=== PATIENT | male | born 1950 | race Caucasian/White ===

== ENCOUNTER 2016-05-11 11:54 | Outpatient (CLI) | payer BC ==
[~2016-05-11] VITALS: Ht 177.8 cm; Wt 113.4 kg
[~2016-05-11 11:54] MED LIST: AMLO5TAB2 PO; ASP325T PO; ASP81TEC PO; ATR20T PO; CALC600T12 PO; CARI350T27 PO; CLOP75TA; CRS350T PO; Calcium PO; FURO40TA4 PO; IBUP-30 PO; LIPITOR; LORA0.5T PO; METO-270 PO; MTP25TSR PO; OMEG-9 PO; OMEP-10 PO; OMEP20CA12 PO; OXYC-191 PO; PARO20TA5 PO; POTA8TAB6 PO; PREG50CA2 PO; PRX10T PO; RAMI10CA PO; RMP5C PO; ROSU5TAB; SLOW K PO
[2016-05-11] MEDS ORDERED: TRIAMCINOLONE ACET (KENALOG-40) 40 MG/ML 1 ML VIAL ONE (12:04)
[2016-05-11] MEDS ORDERED: LIDOCAINE 1% INJ 20 ML (XYLOCAINE) VIAL ONE (12:04)
[2016-05-11] MEDS ORDERED: BUPIVACAINE 0.25% 30 ML (SENSORCAINE) VIAL ONE (12:04)
[2016-05-11 12:09] VITALS: BP 142/83
[2016-05-11 12:38] VITALS: BP 139/87
--- NOTE | 2016-05-11 14:49 | Pain Medicine-Procedure ---
Procedure Pre-Op/Post-Op Diagnosis Diagnosis: sacrococcygeal disorder Indications for Operation hip pain Attending Surgeon Denis Procedure Date of Service: May 11, 2016 Procedure: Flouroscopic guided right sacroiliac joint injection PROCEDURE IN DETAIL: After obtaining informed consent from the patient, the patient's chart was reviewed. The patient was then brought to the procedure room and placed in the prone position. A time out was performed. The back was prepped with antiseptic solution and under fluoroscopic guidance the patient's sacroiliac joint on the right side was identified. Right sacroiliac joint was identified with fluoroscopic guidance and 2 mL's of 1% lidocaine was used to anesthestize the skin and then one 22-gauge 3.5 inch spinal needle was inserted and advance under flouroscopic guidance until it was in the posterior inferior 1 /3 of the sacroiliac joint on the right side. After negative aspiration, needle was injected with 80 mg of Kenalog along with 2 mL's of 0.25% marcaine. Needle was then flushed with 1% lidocaine and then removed. Band-Aids were applied to all the sites and the patient tolerated the procedure well and was taken to the recovery area in stable condition. Complications none MENDY LIMON MD May 11, 2016 2:49 pm
== END 2016-05-11 12:40 | disposition home or self-care (01) ==
LOC: CARD 11:54
PROVIDERS: ATTEND Pain Medicine Pain Medicine
DX: M53.3 Sacrococcygeal disorders, not elsewhere classified (principal); M47.816 Spondylosis without myelopathy or radiculopathy, lumbar region; Z79.899 Other long term (current) drug therapy
CPT/HCPCS: 27096

== ENCOUNTER → 2016-08-23 | Outpatient (CLI) | payer MEDICARE | LOC: CARD 13:47 | PROVIDERS: ATTEND Physician Assistant | DX: I25.10 Atherosclerotic heart disease of native coronary artery without angina pectoris (principal); I65.23 Occlusion and stenosis of bilateral carotid arteries; E78.2 Mixed hyperlipidemia; I10 Essential (primary) hypertension | CPT/HCPCS: 93306 ==

== ENCOUNTER → 2016-10-13 | Outpatient (CLI) | payer MEDICARE ==
[2016-10-13 08:53] LABS: ALBUMIN 3.7 GM/DL (3.2-4.5); BILIRUBIN,DIRECT 0.1 MG/DL (0.0-0.3); BILIRUBIN,INDIRECT 0.2 MG/DL; BILIRUBIN,TOTAL 0.3 MG/DL (0.1-1.0); TOTAL PROTEIN 6.8 GM/DL (6.4-8.2)
== END ==
LOC: LAB 08:19
DX: I25.10 Atherosclerotic heart disease of native coronary artery without angina pectoris (principal); I65.23 Occlusion and stenosis of bilateral carotid arteries; E78.2 Mixed hyperlipidemia; I10 Essential (primary) hypertension
CPT/HCPCS: 36415; 80061; 80076

== ENCOUNTER → 2017-05-21 | Outpatient (CLI) | payer MEDICARE ==
[~2017-05-21] MED LIST changes: -METO-270 PO; +METO-387 PO
[2017-05-21 10:15] LABS: ALBUMIN 4.1 GM/DL (3.2-4.5); BILIRUBIN,DIRECT 0.2 MG/DL (0.0-0.3); BILIRUBIN,INDIRECT 0.2 MG/DL; BILIRUBIN,TOTAL 0.4 MG/DL (0.1-1.0); TOTAL PROTEIN 7.3 GM/DL (6.4-8.2)
== END ==
LOC: LAB 09:30
PROVIDERS: ATTEND Physician Assistant
DX: E78.5 Hyperlipidemia, unspecified (principal); I25.10 Atherosclerotic heart disease of native coronary artery without angina pectoris; I65.29 Occlusion and stenosis of unspecified carotid artery; I10 Essential (primary) hypertension
CPT/HCPCS: 36415; 80061; 80076

== ENCOUNTER → 2017-07-10 | Outpatient (CLI) | payer MEDICARE | LOC: CARD 08:31 | PROVIDERS: ATTEND Physician Assistant | DX: I25.10 Atherosclerotic heart disease of native coronary artery without angina pectoris (principal); I65.23 Occlusion and stenosis of bilateral carotid arteries; E78.5 Hyperlipidemia, unspecified; I10 Essential (primary) hypertension; I08.1 Rheumatic disorders of both mitral and tricuspid valves | CPT/HCPCS: 93306 ==

== ENCOUNTER → 2017-07-15 | Outpatient (CLI) | payer MEDICARE ==
[~2017-07-15] MED LIST changes: +CATHETER FLUSH 10 ML SYR IV PRN; +REGADENOSON 0.4 MG/5 ML SYR (LEXISCAN) IV ONE
[2017-07-15 09:17] VITALS: BP 143/75
[2017-07-15 09:19] VITALS: BP 150/77
--- NOTE | 2017-07-15 22:23 | STRESS TEST ---
DATE OF SERVICE: 07/15/2017 LEXISCAN MYOVIEW STRESS TEST REPORT REFERRING PHYSICIAN: Bharat Baird MD. Baseline heart rate is 51. Baseline blood pressure is 135/71. Baseline EKG is sinus rhythm with no ischemic changes. In summary, the patient was injected with 10.95 mCi of technetium-99 Myoview and the resting images were obtained. Then, the patient received 0.4 mg of Lexiscan followed by 29.3 mCi of technetium-99 Myoview. Throughout the test, there were no EKG changes. The resting and stress images were reviewed and compared in the short axis, horizontal long axis, and vertical long axis views. Review of the images showed diaphragmatic attenuation with mild decreased uptake at the mid to apical inferolateral and anterolateral wall with mild reversibility. SSS is 6, SDS 2, TID value 1.06. On the gated images, the left ventricle appeared to be in normal size with normal contractility. Calculated ejection fraction is 59%. CONCLUSION: 1. The patient tolerated Lexiscan well. 2. Diaphragmatic attenuation with mild decreased uptake at the mid to apical anterolateral and inferolateral wall with mild reversibility. 3. Normal left ventricular size with normal contractility. Calculated ejection fraction 59%. Job ID: [id number] DocumentID: [id number] Dictated Date: 07/15/2017 16:41:06 Hris Coordinator Date: 07/15/2017 22:22:39 Dictated By: FESTUS MEDLEY MD
== END ==
LOC: CARD 07:18
PROVIDERS: ATTEND Physician Assistant
DX: I25.10 Atherosclerotic heart disease of native coronary artery without angina pectoris (principal); I65.23 Occlusion and stenosis of bilateral carotid arteries; E78.2 Mixed hyperlipidemia; I10 Essential (primary) hypertension
CPT/HCPCS: 78452; 93017

== ENCOUNTER → 2018-02-17 | Outpatient (CLI) | payer MEDICARE ==
[~2018-02-17] MED LIST changes: -AMLO5TAB2 PO; +AMLO5TAB7 PO; -CATHETER FLUSH 10 ML SYR IV PRN; -RAMI10CA PO; +RAMI10CA69 PO; -REGADENOSON 0.4 MG/5 ML SYR (LEXISCAN) IV ONE
[2018-02-17 09:25] LABS: ALANINE AMINOTRANSFERASE 57 U/L (0-55); ALBUMIN 4.2 GM/DL (3.2-4.5); ALKALINE PHOSPHATASE 53 U/L (40-136); BILIRUBIN,TOTAL 0.3 MG/DL (0.1-1.0); BUN/CREATININE RATIO 12; CALCIUM 9.6 MG/DL (8.5-10.1); CARBON DIOXIDE 27 MMOL/L (21-32); CHLORIDE 102 MMOL/L (98-107); CHOLESTEROL 151 MG/DL (< 200); CREATININE SERUM 1.05 MG/DL (0.60-1.30); GFR ESTIMATED > 60; GLUCOSE 99 MG/DL (70-105); HDL CHOLESTEROL 37 MG/DL (40-60); POTASSIUM 4.6 MMOL/L (3.6-5.0); SODIUM 137 MMOL/L (135-145); TOTAL PROTEIN 7.4 GM/DL (6.4-8.2); TRIGLYCERIDES 167 MG/DL (<150); VLDL CHOLESTEROL 33 MG/DL (5-40)
== END ==
LOC: LAB 08:48
PROVIDERS: ATTEND Physician Assistant
DX: I25.10 Atherosclerotic heart disease of native coronary artery without angina pectoris (principal); I10 Essential (primary) hypertension; E78.5 Hyperlipidemia, unspecified
CPT/HCPCS: 36415; 80053; 80061

== ENCOUNTER → 2019-03-26 | Outpatient (CLI) | payer MEDICARE ==
[~2019-03-26] MED LIST changes: -AMLO5TAB7 PO; +AMLO5TAB9 PO; -METO-387 PO; +OMEP-280 PO; -OMEP20CA12 PO
[2019-03-26 10:17] LABS: ALANINE AMINOTRANSFERASE 45 U/L (0-55); ALKALINE PHOSPHATASE 48 U/L (40-136); BILIRUBIN,TOTAL 0.3 MG/DL (0.1-1.0); BUN/CREATININE RATIO 14; CALCIUM 9.8 MG/DL (8.5-10.1); CARBON DIOXIDE 28 MMOL/L (21-32); CHLORIDE 99 MMOL/L (98-107); CHOLESTEROL 105 MG/DL (< 200); CREATININE SERUM 0.97 MG/DL (0.60-1.30); GFR ESTIMATED > 60; GLUCOSE 95 MG/DL (70-105); HDL CHOLESTEROL 35 MG/DL (40-60); POTASSIUM 4.8 MMOL/L (3.6-5.0); SODIUM 136 MMOL/L (135-145); TOTAL PROTEIN 7.4 GM/DL (6.4-8.2); TRIGLYCERIDES 203 MG/DL (<150); VLDL CHOLESTEROL 41 MG/DL (5-40)
== END ==
LOC: LAB 09:39
PROVIDERS: ATTEND Internal Medicine Cardiovascular Disease
DX: I25.10 Atherosclerotic heart disease of native coronary artery without angina pectoris (principal); E78.2 Mixed hyperlipidemia
CPT/HCPCS: 36415; 80053; 80061

== ENCOUNTER 2019-08-04 20:25 | Inpatient (IN) | payer MEDICARE ==
[~2019-08-04] VITALS: Ht 175 cm; Wt 116.0 kg
[~2019-08-04 20:25] MED LIST changes: -OMEP-280 PO; +OMEP20CA18 PO
[2019-08-04 20:44] LABS: BASOPHILS % (AUTO) 1 % (0-10); EOSINOPHILS # (AUTO) 0.3 10^3/uL (0.0-0.3); EOSINOPHILS % (AUTO) 5 % (0-10); HEMATOCRIT 34 % (40-54); HEMOGLOBIN 11.5 G/DL (13.3-17.7); LYMPHOCYTES # (AUTO) 1.8 X 10^3 (1.0-4.0); LYMPHOCYTES % (AUTO) 28 % (12-44); MEAN CORPUSCULAR HEMOGLOBIN 30 PG (25-34); MEAN CORPUSCULAR HGB CONC 34 G/DL (32-36); MEAN CORPUSCULAR VOLUME 88 FL (80-99); MEAN PLATELET VOLUME 8.7 FL (7.4-10.4); MONOCYTES # (AUTO) 0.9 X 10^3 (0.0-1.0); MONOCYTES % (AUTO) 13 % (0-12); NEUTROPHILS # (AUTO) 3.4 X 10^3 (1.8-7.8); NEUTROPHILS % (AUTO) 53 % (42-75); PLATELET COUNT 291 10^3/uL (130-400); RED CELL DISTRIBUTION WIDTH 14.6 % (10.0-14.5); WHITE BLOOD COUNT 6.5 10^3/uL (4.3-11.0)
[2019-08-04] MEDS ORDERED: ASPIRIN 81 MG CHEW (CHILDREN'S ASA) PO ONE (20:45)
[2019-08-04] MEDS ORDERED: NITROGLYCERIN 0.4 MG SL TABS BTL 25'S SL ONE (20:48)
[2019-08-04 20:52] LABS: PROTHROMBIN TIME PATIENT 13.3 SEC (12.2-14.7)
[2019-08-04] MEDS: NITROGLYCERIN 0.4 MG SL TABS BTL 25'S SL PRN ×3 (20:55→21:06)
[2019-08-04 20:59] LABS: ALBUMIN 4.2 GM/DL (3.2-4.5); BILIRUBIN,TOTAL 0.3 MG/DL (0.1-1.0); CALCIUM 9.3 MG/DL (8.5-10.1); CREATININE SERUM 1.22 MG/DL (0.60-1.30); MAGNESIUM 1.7 MG/DL (1.6-2.4); TOTAL PROTEIN 7.8 GM/DL (6.4-8.2)
--- NOTE | 2019-08-04 21:05 | ED Chest Pain ---
General Chief Complaint: Chest Pain Stated Complaint: CP Nursing Triage Note: INTERMITTANT CHEST PRESSURE RADIATING TO BACK/LEFT SHOULDER SINCE SATURDAY AM. Nursing Sepsis Screen: No Definite Risk Source: patient Exam Limitations: no limitations History of Present Illness Date Seen by Provider: August 04, 2019 Time Seen by Provider: 21:01 Initial Comments To ER with reports of chest pressure and dyspnea on exertion. 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 Seemed to go away, chest pain recurred this evening as a pressure rated at 4 out of 10. History of CAB[place] [address] Nina in [place], last cardiac catheterization was about 4 years ago. 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) NTG SL COTTON WEIGHER OPERATOR: No Associated Symptoms: No nausea/vomiting; shortness of breath Allergies and Home Medications Allergies Coded Allergies: baclofen (Verified Allergy, Severe, DROPS HEART RATE, 05/02/15) tizanidine (Verified Allergy, Severe, DROP HEART RATE, 05/02/15) rosuvastatin (Verified Allergy, Unknown, 12/22/08) simvastatin (Verified Allergy, Unknown, 12/22/08) Home Medications Amlodipine Besylate 5 Mg Tablet, 5 MG PO EVERY EVENING, (Reported) Aspirin 81 Mg Tabec, 81 MG PO DAILY, (Reported) Calcium Carbonate 600 Mg Tablet, 600 MG PO DAILY, (Reported) Carisoprodol 350 Mg Tablet, 350 MG PO QID PRN for MUSCLE SPASMS, (Reported) Furosemide 40 Mg Tablet, 40 MG PO DAILY, (Reported) Ibuprofen 200 Mg Tablet, 600 MG PO TID PRN for PAIN, (Reported) TAKES 3 (200MG) TABLETS Lorazepam 0.5 Mg Tablet, 0.5 MG PO BID PRN for ANXIETY, (Reported) Metoprolol Succinate 25 Mg Tab.er.24h, 12.5 MG PO HS, (Reported) TAKES 1/2 (25MG) TABLET [place]-3/Dha/Epa/Fish Oil 1 Each Capsule.dr, 1,400 MG PO TID, (Reported) Omeprazole 20 Mg Capsule.dr, 20 MG PO BID, (Reported) Oxycodone Hcl/Acetaminophen 1 Tab Tablet, 1 TAB PO QID PRN for PAIN, (Reported) Paroxetine HCl 20 Mg Tablet, 20 MG PO DAILY, (Reported) Potassium Chloride 8 Meq Tablet.er, 8 MEQ PO DAILY, (Reported) Pregabalin 50 Mg Capsule, 50 MG PO BID Prescribed by: FESTUS MEDLEY on 05/02/151745 Ramipril 10 Mg Capsule, 10 MG PO DAILY, (Reported) Patient Home Medication List Home Medication List Reviewed: Yes Review of Systems Review of Systems Constitutional: see HPI EENTM: No Symptoms Reported Respiratory: See HPI Cardiovascular: See HPI, Chest Pain Gastrointestinal: See HPI Genitourinary: No Symptoms Reported Musculoskeletal: no symptoms reported Skin: no symptoms reported Psychiatric/Neurological: No Symptoms Reported Endocrine: No Symptoms Reported Hematologic/Lymphatic: No Symptoms Reported Past Wcrzugc-Fkbjfe-Kvlfbc Hx Patient Social History Alcohol Use: Denies Use Recreational Drug Use: No Smoking Status: Never a Smoker 2nd Hand Smoke Exposure: No Recent Foreign Travel: No Contact w/Someone Who Travel: No Recent Infectious Disease Expo: No Recent Hopitalizations: No Physical Abuse: No Sexual Abuse: No Mistreated: No Fear: No Immunizations Up To Date Tetanus Booster (TDap): More than 5yrs Seasonal Allergies Seasonal Allergies: No Past Medical History Surgeries: Yes ( hernia, kidney stones x2) CABG, Coronary Stent, Gallbladder Respiratory: Yes Sleep Apnea Currently Using CPAP: Yes Cardiac: Yes Coronary Artery Disease, Heart Attack, Hypertension Neurological: Yes (MUSCLE SPASMS) Reproductive Disorders: No Genitourinary: Yes Kidney Stones Gastrointestinal: Yes Gastroesophageal Reflux, Gall Bladder Disease Musculoskeletal: Yes Arthritis, Chronic Back Pain Endocrine: No HEENT: No Loss of Vision: Denies Hearing Impairment: Hard of Hearing Cancer: No Psychosocial: Yes Anxiety Integumentary: No Blood Disorders: No Adverse Reaction/Blood Tranf: No Family Medical History Cardiovascular disease 19 FATHER Hypercholesterolemia G8 BROTHER G8 SISTER Myocardial infarction 19 FATHER Physical Exam Vital Signs Vital Signs - First Documented Capillary Refill : Less Than 3 Seconds Height, Weight, BMI Height: 5'10.00" Weight: 250lbs. 0.0oz. 113.066742ir; 37.00 BMI Method:Stated General Appearance: No Apparent Distress, WD/WN HEENT: PERRL/EOMI Neck: Full Range of Motion, Normal Inspection Respiratory: No Accessory Muscle Use, No Respiratory Distress, Other (crackles left lung) Cardiovascular: Regular Rate, Rhythm, Normal Peripheral Pulses Gastrointestinal: Non Tender, Soft Extremity: Normal Capillary Refill, Normal Inspection Neurologic/Psychiatric: Alert, Oriented x3 Skin: Normal Color, Warm/Dry Progress/Results/Core Measures Results/Orders Lab Results Laboratory Tests Test 08/04/19 20:33 Range/Units White Blood Count 6.5 4.3-11.0 10^3/uL Red Blood Count 3.89 L 4.35-5.85 10^6/uL Hemoglobin 11.5 L 13.3-17.7 G/DL Hematocrit 34 L 40-54 % Mean Corpuscular Volume 88 80-99 FL Mean Corpuscular Hemoglobin 30 25-34 PG Mean Corpuscular Hemoglobin Concent 34 32-36 G/DL Red Cell Distribution Width 14.6 H 10.0-14.5 % Platelet Count 291 130-400 10^3/uL Mean Platelet Volume 8.7 7.4-10.4 FL Neutrophils (%) (Auto) 53 42-75 % Lymphocytes (%) (Auto) 28 12-44 % Monocytes (%) (Auto) 13 H 0-12 % Eosinophils (%) (Auto) 5 0-10 % Basophils (%) (Auto) 1 0-10 % Neutrophils # (Auto) 3.4 1.8-7.8 X 10^3 Lymphocytes # (Auto) 1.8 1.0-4.0 X 10^3 Monocytes # (Auto) 0.9 0.0-1.0 X 10^3 Eosinophils # (Auto) 0.3 0.0-0.3 10^3/uL Basophils # (Auto) 0.0 0.0-0.1 10^3/uL Prothrombin Time 13.3 12.2-14.7 SEC INR Comment 1.0 0.8-1.4 Activated Partial Thromboplast Time 27 24-35 SEC Sodium Level 135 135-145 MMOL/L Potassium Level 4.0 3.6-5.0 MMOL/L Chloride Level 100 98-107 MMOL/L Carbon Dioxide Level 24 21-32 MMOL/L Anion Gap 11 5-14 MMOL/L Blood Urea Nitrogen 12 7-18 MG/DL Creatinine 1.22 0.60-1.30 MG/DL Estimat Glomerular Filtration Rate 59 BUN/Creatinine Ratio 10 Glucose Level 106 H 70-105 MG/DL Calcium Level 9.3 8.5-10.1 MG/DL Corrected Calcium 9.1 8.5-10.1 MG/DL Magnesium Level 1.7 1.6-2.4 MG/DL Total Bilirubin 0.3 0.1-1.0 MG/DL Aspartate Amino Transf (AST/SGOT) 43 H 5-34 U/L Alanine Aminotransferase (ALT/SGPT) 35 0-55 U/L Alkaline Phosphatase 50 40-136 U/L Myoglobin 93.1 H 10.0-92.0 NG/ML Troponin I 0.924 *H <0.028 NG/ML B-Type Natriuretic Peptide 86.4 <100.0 PG/ML Total Protein 7.8 6.4-8.2 GM/DL Albumin 4.2 3.2-4.5 GM/DL My Orders Orders - ARANZA BELLAMY APRN Cbc With Automated Diff (08/04/19 20:36) Magnesium (08/04/19 20:36) Chest 1 View, Ap/Pa Only (08/04/19 20:36) Ekg Tracing (08/04/19 20:36) Comprehensive Metabolic Panel (08/04/19 20:36) Myoglobin Serum (08/04/19 20:36) Protime With Inr (08/04/19 20:36) Partial Thromboplastin Time (08/04/19 20:36) O2 (08/04/19 20:36) Monitor-Rhythm Ecg Trace Only (08/04/19 20:36) Lipid Panel (08/05/19 06:00) Ed Iv/Invasive Line Start (08/04/19 20:36) BNP (08/04/19 20:36) Aspirin Chewable Tablet (Baby Aspirin Ch (08/04/19 20:45) Troponin I (08/04/19 20:33) Nitroglycerin 0.4 Mg Btl 25's (Nitrostat (08/04/19 21:00) Nitroglycerin 0.4 Mg Btl 25's (Nitrostat (08/04/19 20:48) Ticagrelor Tablet (Brilinta Tablet) (08/04/19 21:15) Heparin Injection (Heparin Injection) (08/04/19 21:15) Heparin Drip [id number] Unit/500ml (Heparin (08/04/19 21:10) Nitro Drip [id number] Mcg/D5w (Nitroglycerin (08/04/19 21:15) Medications Given in ED Current Medications Medications Dose Ordered Sig/Francisco Route Start Time Stop Time Status Last Admin Dose Admin Aspirin 324 mg ONCE ONCE PO 08/04/19 20:45 08/04/19 20:46 DC 08/04/19 20:47 324 MG Heparin Sodium (Porcine) 5,000 units ONCE ONCE IV 08/04/19 21:15 08/04/19 21:16 DC 08/04/19 21:14 5,000 UNITS Nitroglycerin 1 TAB Q 5 MIN X 3 NEEDED PRN SL 08/04/19 21:00 08/04/19 21:06 0.4 MG Ticagrelor 180 mg ONCE ONCE PO 08/04/19 21:15 08/04/19 21:16 DC 08/04/19 21:15 180 MG Vital Signs/I&O 08/04/19 08/04/19 20:25 20:25 Temp 36.5 Pulse 70 Resp 18 B/P (MAP) 139/83 (101) Pulse Ox 97 O2 Delivery Room Air Room Air Blood Pressure Mean: 101 Departure Communication (Admissions) Time/Spoke to Admitting Phy: 21:[address] Hernandez on-call for hospitalist, spoke with Dr. Mcarthur on-call for cardiology. Family Conversation Rates chest pressure at 4 out of 10. EKG shows ST segment depression in leads 1, 2, aVL, V3 and V4 V5 and V6. One sublingual nitroglycerin reduced his chest pressure but did not completely resolve it. I spoke with Dr. Mcarthur, will give aspirin, Brilinta bolus, heparin 5000 units IV once+drip, nitroglycerin drip. Impression Primary Impression: Non-STEMI (non-ST elevated myocardial infarction) Disposition: ADMITTED INPATIENT Condition: Stable Admissions Decision to Admit Reason: Admit from ER (General) Decision to Admit/Date: August 04, 2019 Time/Decision to Admit Time: 21:18 Departure-Patient Inst. Referrals: JU UPTON (PCP/Family) Primary Care Physician ARANZA BELLAMY APRN August 04, 2019 21:05
[2019-08-04] MEDS ORDERED: HEParin DRIP 25000 UNIT/500ML 500 ML IV ONE (21:10)
[2019-08-04] MEDS ORDERED: NITRO DRIP 25000 MCG/D5W 250 ML IV SCH (21:15)
[2019-08-04] MEDS ORDERED: TICAGRELOR 90 MG TABLET (BRILINTA) PO ONE (21:15)
--- NOTE | 2019-08-04 21:15 | Diagnostic Imaging Report ---
INDICATION: Intermittent chest pressure COMPARISON: 05/02/2015 FINDINGS: Sternal wires midline. There are perihilar streaky interstitial opacities in part atelectasis however edema or a pneumonia could not be excluded. This is increased from the previous. There are equivocal findings for a small left pleural effusion at the costophrenic angle. No pneumothorax. IMPRESSION: Perihilar pulmonary opacities in part atelectasis however pneumonia and/or edema superimposed could not be excluded, suspect small left pleural effusion, no pneumothorax. Dictated by: Dictated on workstation # [id number]
--- NOTE | 2019-08-04 21:55 | NUR ---
icu staff not available to take patient at this time. pt updated on anticipated wait times for transfer to icu bed.
[2019-08-04 22:46] VITALS: BP 156/90
[2019-08-04 23:00] VITALS: BP 142/83
[2019-08-04 23:15] VITALS: BP 146/85
[2019-08-04 23:30] VITALS: BP 151/89
[2019-08-04 23:45] VITALS: BP 143/84
[2019-08-05] VITALS (28 sets, daily range): BP systolic 128–155; BP diastolic 73–92
[2019-08-05] MEDS: NITROGLYCERIN DRIP 25 MG/250 ML D5W (PRE-MIX) IV SCH ×2 (01:27→22:32)
[2019-08-05] MEDS ORDERED: HEParin 1000 UNIT/ML BOLUS (FULL THERAPY) IV PRN (01:30)
[2019-08-05] MEDS ORDERED: morphine INJ 4 MG/ML 1 ML (VIAL/SYRINGE) IV PRN (01:30)
[2019-08-05] MEDS ORDERED: HEParin DRIP 25000 UNIT/500ML 500 ML IV SCH (01:30)
[2019-08-05] MEDS ORDERED: ONDANSETRON 4 MG/2 ML (SDV) Z0FRAN IV PRN (01:30)
[2019-08-05] MEDS ORDERED: HEParin DRIP 25000 UNIT/500ML (FULL THERAPY) IV SCH (01:30)
--- NOTE | 2019-08-05 01:30 | NUR ---
PT HAS NOT HAD ANY CHEST PAIN SINCE ARRIVAL TO ICU AND BP HAS BEEN WNL. NITROGLYCERIN DRIP HAS NOT BEEN STARTED AND NOT ADMINISTERED AT THIS TIME. WILL START NITROGLYCERIN DRIP IF PT BEGINS TO COMPLAIN OF CHEST PAIN OR BP INCREASES. WILL CONTINUE TO MONITOR.
[2019-08-05 03:34] LABS: BASOPHILS % (AUTO) 1 % (0-10); EOSINOPHILS # (AUTO) 0.3 10^3/uL (0.0-0.3); EOSINOPHILS % (AUTO) 4 % (0-10); HEMATOCRIT 38 % (40-54); HEMOGLOBIN 12.8 G/DL (13.3-17.7); LYMPHOCYTES # (AUTO) 1.8 X 10^3 (1.0-4.0); LYMPHOCYTES % (AUTO) 27 % (12-44); MEAN CORPUSCULAR HEMOGLOBIN 29 PG (25-34); MEAN CORPUSCULAR HGB CONC 34 G/DL (32-36); MEAN CORPUSCULAR VOLUME 87 FL (80-99); MEAN PLATELET VOLUME 8.6 FL (7.4-10.4); MONOCYTES # (AUTO) 0.7 X 10^3 (0.0-1.0); MONOCYTES % (AUTO) 11 % (0-12); NEUTROPHILS # (AUTO) 3.9 X 10^3 (1.8-7.8); NEUTROPHILS % (AUTO) 58 % (42-75); PLATELET COUNT 309 10^3/uL (130-400); RED CELL DISTRIBUTION WIDTH 14.7 % (10.0-14.5); WHITE BLOOD COUNT 6.7 10^3/uL (4.3-11.0)
[2019-08-05 03:56] LABS: ALBUMIN 4.5 GM/DL (3.2-4.5); CHLORIDE 100 MMOL/L (98-107); POTASSIUM 4.1 MMOL/L (3.6-5.0); SODIUM 135 MMOL/L (135-145)
[2019-08-05 03:57] LABS: CALCIUM 9.7 MG/DL (8.5-10.1)
[2019-08-05 03:58] LABS: GLUCOSE 112 MG/DL (70-105); TOTAL PROTEIN 8.3 GM/DL (6.4-8.2)
[2019-08-05 03:59] LABS: CARBON DIOXIDE 24 MMOL/L (21-32)
[2019-08-05 04:00] LABS: BILIRUBIN,TOTAL 0.4 MG/DL (0.1-1.0)
[2019-08-05 04:01] LABS: PHOSPHORUS 2.5 MG/DL (2.3-4.7)
[2019-08-05 04:02] LABS: ALKALINE PHOSPHATASE 54 U/L (40-136); GFR ESTIMATED > 60
[2019-08-05 04:03] LABS: BUN/CREATININE RATIO 11
[2019-08-05 04:05] LABS: ALANINE AMINOTRANSFERASE 41 U/L (0-55); MAGNESIUM 1.8 MG/DL (1.6-2.4)
[2019-08-05] MEDS: MAGNESIUM 1 GM/100 ML IVPB 100 ML IV SCH (04:06)
[2019-08-05] MEDS: KCL 20 MEQ TAB (K-DUR) PO SCH (04:06)
[2019-08-05] MEDS: POTASSIUM CL 10MEQ/50ML IVPB 50 ML IV SCH (04:06)
--- NOTE | 2019-08-05 05:46 | Pulmonary Consultation ---
History of Present Illness History of Present Illness Date Seen by Provider: August 05, 2019 Time Seen by Provider: 05:39 Date of Admission History of Present Illness 69yo with hx of CAD CABG in 2007 presented to ED secondary to worsening and persistent CP and associated with SOB aaron with any exertion that started over weekend while he was cutting tree limbs. Last cath was 4yrs ago. Troponin was found to be elevated. Pt was admitted to ICU for close observation. Cardiology is also consulted. Allergies and Home Medications Allergies Coded Allergies: baclofen (Verified Allergy, Severe, DROPS HEART RATE, 05/02/15) tizanidine (Verified Allergy, Severe, DROP HEART RATE, 05/02/15) rosuvastatin (Verified Allergy, Unknown, 12/22/08) simvastatin (Verified Allergy, Unknown, 12/22/08) Home Medications Amlodipine Besylate 5 Mg Tablet, 5 MG PO EVERY EVENING, (Reported) Aspirin 81 Mg Tabec, 81 MG PO DAILY, (Reported) Calcium Carbonate 600 Mg Tablet, 600 MG PO DAILY, (Reported) Carisoprodol 350 Mg Tablet, 350 MG PO QID PRN for MUSCLE SPASMS, (Reported) Furosemide 40 Mg Tablet, 40 MG PO DAILY, (Reported) Ibuprofen 200 Mg Tablet, 600 MG PO TID PRN for PAIN, (Reported) TAKES 3 (200MG) TABLETS Lorazepam 0.5 Mg Tablet, 0.5 MG PO BID PRN for ANXIETY, (Reported) Metoprolol Succinate 25 Mg Tab.er.24h, 12.5 MG PO HS, (Reported) TAKES 1/2 (25MG) TABLET [place]-3/Dha/Epa/Fish Oil 1 Each Capsule.dr, 1,400 MG PO TID, (Reported) Omeprazole 20 Mg Capsule.dr, 20 MG PO BID, (Reported) Oxycodone Hcl/Acetaminophen 1 Tab Tablet, 1 TAB PO QID PRN for PAIN, (Reported) Paroxetine HCl 20 Mg Tablet, 20 MG PO DAILY, (Reported) Potassium Chloride 8 Meq Tablet.er, 8 MEQ PO DAILY, (Reported) Pregabalin 50 Mg Capsule, 50 MG PO BID Prescribed by: FESTUS MEDLEY on 05/02/15 3521 Ramipril 10 Mg Capsule, 10 MG PO DAILY, (Reported) Past Rcakegx-Npymfm-Bggtin Hx Patient Social History Alcohol Use: Denies Use Recreational Drug Use: No Smoking Status: Never a Smoker 2nd Hand Smoke Exposure: No Recent Foreign Travel: No Contact w/Someone Who Travel: No Recent Infectious Disease Expo: No Recent Hopitalizations: No Physical Abuse: No Sexual Abuse: No Mistreated: No Fear: No Immunizations Up To Date Tetanus Booster (TDap): More than 5yrs Seasonal Allergies Seasonal Allergies: No Past Medical History Surgeries: Yes ( hernia, kidney stones x2) CABG, Coronary Stent, Gallbladder Respiratory: Yes Sleep Apnea Currently Using CPAP: Yes Cardiac: Yes Coronary Artery Disease, Heart Attack, Hypertension Neurological: Yes (MUSCLE SPASMS) Reproductive Disorders: No Genitourinary: Yes Kidney Stones Gastrointestinal: Yes Gastroesophageal Reflux, Gall Bladder Disease Musculoskeletal: Yes Arthritis, Chronic Back Pain Endocrine: No HEENT: No Loss of Vision: Denies Hearing Impairment: Hard of Hearing Cancer: No Psychosocial: Yes Anxiety Integumentary: No Blood Disorders: No Adverse Reaction/Blood Tranf: No Family Medical History Cardiovascular disease 19 FATHER Hypercholesterolemia G8 BROTHER G8 SISTER Myocardial infarction 19 FATHER Review of Systems Date Seen by Provider: August 05, 2019 Time Seen by Provider: 05:47 Constitutional: Sweats, Weakness, Malaise; No: Fever, Chills, Other Eyes: No: Pain, Vision change, Conjunctivae inflammation, Eyelid inflammation, Other, Redness ENT: No: Ear pain, Ear discharge, Nose pain, Nose discharge, Nose congestion, Mouth pain, Mouth swelling, Throat pain, Throat swelling, Other Respiratory: Cough, Dry, Shortness of breath, SOB with excertion; No: Wheezing, Hemoptysis, Pleuritic Pain, Sputum, Wheezing, Other Cardiovascular: Chest Pain, Palpitations; No: Paroxysmal Noc. Dyspnea, Edema, Lt Headedness Gastrointestinal: No: Nausea, Vomiting, Abdominal Pain, Diarrhea, Constipation, Melena, Hematochezia, Other Genitourinary: No Dysuria, No Frequency, No Incontinence, No Hematuria, No Retention, No Other Musculoskeletal: back pain; No: other, neck pain, shoulder pain, arm pain, hand pain, leg pain, foot pain Skin: No: Rash, Lesions, Jaundice, Bruising, Other Neurological: Weakness Sepsis Event Evaluation Height, Weight, BMI Height: 5'10.00" Weight: 250lbs. 0.0oz. 113.527130me; 37.55 BMI Method:Stated Exam Exam Vital Signs Date Time Temp Pulse Resp B/P (MAP) Pulse Ox O2 Delivery O2 Flow Rate FiO2 08/05/19 03:16 36.6 08/05/19 03:16 96 Room Air 08/05/19 01:00 72 08/05/19 01:00 72 2 152/83 (106) 96 Room Air 08/05/19 00:00 68 18 155/88 (110) 96 Room Air 08/04/19 23:49 96 Room Air 08/04/19 23:45 68 23 143/84 (103) 97 Room Air 08/04/19 23:37 95 Room Air 08/04/19 23:30 64 23 151/89 (109) 97 Room Air 08/04/19 23:15 76 28 146/85 (105) 97 Room Air 08/04/19 23:00 69 16 142/83 (102) 98 Room Air 08/04/19 22:47 76 08/04/19 22:46 36.8 69 16 156/90 (112) 98 Room Air 08/04/19 22:30 36.8 75 18 122/78 94 Room Air 08/04/19 21:15 58 122/91 08/04/19 20:25 Room Air 08/04/19 20:25 36.5 70 18 139/83 (101) 97 Room Air I & O 08/05/19 07:00 Intake Total 0 ml Output Total 1100 ml Balance -1100 ml Height & Weight Height: 5'10.00" Weight: 250lbs. 0.0oz. 113.330623du; 37.55 BMI Method:Stated General Appearance: No Apparent Distress, WD/WN HEENT: PERRL/EOMI Neck: Full Range of Motion, Normal Inspection Respiratory: No Accessory Muscle Use, No Respiratory Distress, Other (crackles left lung) Cardiovascular: Regular Rate, Rhythm, Normal Peripheral Pulses Capillary Refill: Less Than 3 Seconds Extremity: Normal Capillary Refill, Normal Inspection Neurologic/Psychiatric: Alert, Oriented x3 Skin: Normal Color, Warm/Dry Results Lab Laboratory Tests 08/04/19 20:33 08/05/19 03:15 Assessment/Plan Assessment/Plan Acute SOB with LLL infiltrate r/o pneumonia -No leukocytosis, No fever -Check PCT -BNP is normal Acute CP with NSTEMI -Cardiology following -Trend troponins Anemia -Monitor NAVARRO FRANCISCO DO August 05, 2019 05:46
--- NOTE | 2019-08-05 05:57 | Diagnostic Imaging Report ---
Indication: Chest pain Portable chest 4:00 AM There are postoperative changes from CABG surgery. Heart size is normal. There are some perihilar atelectasis. There are no effusions or pneumothoraces. IMPRESSION: Postsurgical changes. Perihilar atelectasis. No appreciable change from previous day's study. Dictated by: Dictated on workstation # [id number]
[2019-08-05] MEDS ORDERED: fentaNYL INJECTION 100 MCG/2 ML AMP ONE (08:25)
[2019-08-05] MEDS ORDERED: NS IV 1000 ML 1,000 ML ONE (08:25)
[2019-08-05] MEDS ORDERED: MIDAZOLAM 5 MG/5 ML (VERSED) VIAL ONE (08:25)
[2019-08-05] MEDS ORDERED: LIDOCAINE 1% INJ 20 ML 20 ML VIAL ONE (08:25)
[2019-08-05] MEDS ORDERED: HEParin (CATH LAB) 2,000 ML IV ONE (08:25)
--- NOTE | 2019-08-05 08:45 | Cardiac Procedure Note-CS/ASA ---
Pre-Procedure Note Pre-Op Procedure Note H&P Reviewed The H&P was reviewed, patient examined and no changes noted. Date H&P Reviewed: August 05, 2019 Time H&P Reviewed: 08:44 Conscious Sedation Pre-Proced Time 08:44 ASA Score 3 For ASA 3 and 4: Consider anesthesia and medical clearance. Also, for patients with a history of failed moderate sedation consider anesthesia. Airway Lungs Heart ASA score ASA 1: a normal healthy patient ASA 2: a patient with a mild systemic disease (mid diabetes, controlled hypertension, obesity x ASA 3: a patient with a severe systemic disease that limits activity (angina, COPD, prior Myocardial infarction) ASA 4: a patient with an incapacitating disease that is a constant threat to life (CHF, renal failure) ASA 5: a moribund patient not expected to survive 24 hrs. (ruptured aneurysm) ASA 6: a declared brain- patient whose organs are being harvested. For emergent operations, add the letter E after the classification Mallampati Classification Grade 3 Sedation Plan Analgesia, Amnesia, Plan communicated to team members, Discussed options with patient/fam, Discussed risks with patient/fam The patient is an appropriate candidate to undergo the planned procedure, sedation, and anesthesia. The patient immediately re-assessed prior to indication. FESTUS MEDLEY MD August 05, 2019 08:45
--- NOTE | 2019-08-05 08:48 | Consultation-Cardiology ---
HPI-Cardiology Cardiology Consultation Date of Consultation 08/05/19 Date of Admission Time Seen by Provider: 08:30 Indication: NSTEMI, chest pain HPI Patient is a 69 y/o male with history of CAD with CABG x 6, HTN, HLP, chronic back pain. Presented to the ER last night with complaints of intermittent chest pain for the past 5 days. Reports chest pain worse with activity with associated left arm pain and dyspnea. Was given SL nitro in the ER with some improvement of chest pain. Currently chest pain free. W/u done in ER revealed mildly elevated troponin, repeat troponin done this morning 2.4. EKG reveals ST segment depression in leads 1, 2, aVL, V3 and V4 V5 and V6. Home Medications & Allergies Allergies: Coded Allergies: baclofen (Verified Allergy, Severe, DROPS HEART RATE, 05/02/15) tizanidine (Verified Allergy, Severe, DROP HEART RATE, 05/02/15) rosuvastatin (Verified Allergy, Unknown, 12/22/08) simvastatin (Verified Allergy, Unknown, 12/22/08) Home Medication List Reviewed: Yes OEC-Melqyu-Ufjtma Hx Patient Social History Marital Status: Employed/Student: employed Alcohol Use: Denies Use Recreational Drug Use: No Smoking Status: Never a Smoker 2nd Hand Smoke Exposure: No Recent Foreign Travel: No Recent Infectious Disease Expo: No Recent Hopitalizations: No Immunizations Up To Date Tetanus Booster (TDap): More than 5yrs Past Medical History CAD, HTN, HLP Family Medical History Family History: Cardiovascular disease 19 FATHER Hypercholesterolemia G8 BROTHER G8 SISTER Myocardial infarction 19 FATHER Review of Systems-General Review of Systems Constitutional: see HPI; No chills, No diaphoresis, No dizziness, No fever; malaise EENTM: see HPI, no symptoms reported; No blurred vision, No double vision, No vision loss Respiratory: see HPI; No cough; dyspnea on exertion, orthopnea; No wheezing Cardiovascular: see HPI, chest pain, edema, Hx of Intervention; No palpitations, No syncope; vascular heart diseas Gastrointestinal: No abdominal pain, No constipation Genitourinary: No dysuria, No frequency Musculoskeletal: no symptoms reported Skin: no symptoms reported Psychiatric/Neurological: No Symptoms Reported Reviewed Test Results Reviewed Test Results Lab Laboratory Tests 08/04/19 20:33: White Blood Count 6.5, Red Blood Count 3.89L, Hemoglobin 11.5L, Hematocrit 34L, Mean Corpuscular Volume 88, Mean Corpuscular Hemoglobin 30, Mean Corpuscular Hemoglobin Concent 34, Red Cell Distribution Width 14.6H, Platelet Count 291, Mean Platelet Volume 8.7, Neutrophils (%) (Auto) 53, Lymphocytes (%) (Auto) 28, Monocytes (%) (Auto) 13H, Eosinophils (%) (Auto) 5, Basophils (%) (Auto) 1, Neutrophils # (Auto) 3.4, Lymphocytes # (Auto) 1.8, Monocytes # (Auto) 0.9, Eosinophils # (Auto) 0.3, Basophils # (Auto) 0.0, Prothrombin Time 13.3, INR Comment 1.0, Activated Partial Thromboplast Time 27, Sodium Level 135, Potassium Level 4.0, Chloride Level 100, Carbon Dioxide Level 24, Anion Gap 11, Blood Urea Nitrogen 12, Creatinine 1.22, Estimat Glomerular Filtration Rate 59, BUN/Creatinine Ratio 10, Glucose Level 106H, Calcium Level 9.3, Corrected Calcium 9.1, Magnesium Level 1.7, Total Bilirubin 0.3, Aspartate Amino Transf (AST/SGOT) 43H, Alanine Aminotransferase (ALT/SGPT) 35, Alkaline Phosphatase 50, Myoglobin 93.1H, Troponin I 0.924*H, B-Type Natriuretic Peptide 86.4, Total Protein 7.8, Albumin 4.2 08/05/19 03:15: White Blood Count 6.7, Red Blood Count 4.36, Hemoglobin 12.8L, Hematocrit 38L, Mean Corpuscular Volume 87, Mean Corpuscular Hemoglobin 29, Mean Corpuscular Hemoglobin Concent 34, Red Cell Distribution Width 14.7H, Platelet Count 309, Mean Platelet Volume 8.6, Neutrophils (%) (Auto) 58, Lymphocytes (%) (Auto) 27, Monocytes (%) (Auto) 11, Eosinophils (%) (Auto) 4, Basophils (%) (Auto) 1, Neutrophils # (Auto) 3.9, Lymphocytes # (Auto) 1.8, Monocytes # (Auto) 0.7, Eosinophils # (Auto) 0.3, Basophils # (Auto) 0.0, Activated Partial Thromboplast Time 37H, Sodium Level 135, Potassium Level 4.1, Chloride Level 100, Carbon Dioxide Level 24, Anion Gap 11, Blood Urea Nitrogen 10, Creatinine 0.90, Estimat Glomerular Filtration Rate > 60, BUN/Creatinine Ratio 11, Glucose Level 112H, Calcium Level 9.7, Corrected Calcium 9.3, Magnesium Level 1.8, Total Bilirubin 0.4, Aspartate Amino Transf (AST/SGOT) 50H, Alanine Aminotransferase (ALT/SGPT) 41, Alkaline Phosphatase 54, Total Protein 8.3H, Albumin 4.5, Phosphorus Level 2.5 08/05/19 05:50: Troponin I 2.409*H, Triglycerides Level 89, Cholesterol Level 127, LDL Cholesterol Direct 79, VLDL Cholesterol 18, HDL Cholesterol 43, Procalcitonin 0.06 Physical Exam Physical Exam Vital Signs Vital Signs - First Documented Capillary Refill : Less Than 3 Seconds Height, Weight, BMI Height: 5'10.00" Weight: 250lbs. 0.0oz. 113.032549gy; 37.55 BMI Method:Stated General Appearance: No Apparent Distress, WD/WN, Anxious HEENT: PERRL/EOMI Neck: Full Range of Motion, Normal Inspection Respiratory: No Accessory Muscle Use, No Respiratory Distress, Other (crackles left lung) Cardiovascular: Regular Rate, Rhythm, No JVD, No Murmur, Normal Peripheral Pulses Gastrointestinal: Non Tender, Soft Back: No CVA Tenderness Extremity: Normal Capillary Refill, Normal Inspection, Pedal Edema Neurologic/Psychiatric: Alert, Oriented x3 Skin: Normal Color, Warm/Dry A/P-Cardiology Admission Diagnosis NSTEMI CAD HTN HLP Assessment/Plan Chest pain resembling unstable angina, NSTEMI, initial troponin .924, repeat troponin 2.4. EKG reveals ST depression in leads 1, 2, aVL, V3 and V4 V5 and V6. Was given SL nitro in ER with relief of pain. Planning for [facility] this morning for further evaluation. Coronary artery disease with history of CABG x6 with vein graft to OM 1, diagonal one, then graft to RPDA, RP LV, POWELL to LAD, vein graft to radial OM 2. Most recent cardiac catheterization done May 02, 2015 revealed severe stenosis at the mid left main with total occlusion of the circumflex artery. Vein graft to first obtuse marginal and diagonal branch are occluded. Patent POWELL to LAD, patent vein graft to second obtuse marginal. Totally occluded RCA with patent vein graft to the right posterior descending artery and posterior lateral branch was small vessel disease distally. Borderline stress test in July 2017 with diaphragmatic attenuation and mild decrease uptake at the mid to apical anterolateral and inferolateral wall with mild reversibility, SSS 6, SDS 2. Planning for [facility] this morning. Hypertension, good control, continue to monitor Hyperlipidemia, intolerance to statins causing severe myalgias, elevated LFTs. More specifically patient has tried Lipitor 20 mg, was increased to 40 mg in 2010, however stopped secondary to elevated LFTs in April 2015. He has also been intolerant to Zocor and Crestor causing myalgias. Niaspan was stopped 2014 secondary GI upset. Liver enzymes back normal after discontinuation of statin therapy. Started on Repatha and tolerating it well, reevaluate lipids Sick sinus syndrome, bradycardia, loss of energy. Improved after decreasing beta lauro, continue to monitor. Restless leg syndrome, lower extremity pain, discomfort. Follows with PCP Anxiety, reporting improvement with Xanax. Continue to monitor. Carotid artery stenosis, status post left carotid endarterectomy done by Dr. Sherwin Lou in November 2017. Continue to monitor Mild pulmonary hypertension, last echocardiogram was done in July 2017 showing normal LV size with EF 55-65 percent, grade 2 diastolic dysfunction, left atrium 4.7 cm, mild MR, PA 35 mmHg. Continue to monitor. History of GI bleed, continue to monitor Obesity, BMI is 36. We discussed weight loss and exercise. Obstructive sleep apnea, using C Pap machine. Chronic back pain, managed by primary care physician Thank you for allowing us to participate in the management of Mr. Kitchen. This is Maddy Pickett PA-C, as a scribe for Dr. Baxter. Patient was seen and evaluated with Maddy, examination performed, management plan was discussed, agree with the current scribed note, I made few changes to the note using Italic font 69 years old gentleman with extensive cardiac history as described above, has been having chest pain for the past few days, becoming worse, came into the emergency room last night and had elevated troponin that continue to increase. Currently he is chest pain-free, EKG showing ST depression in 1, 2, aVL. Lungs were clear to auscultation, heart is regular. Has underlying hypertension, hyperlipidemia and sinus node dysfunction. We discussed the management plan recommended urgent cardiac catheterization possible PTCA. Procedure was explained in length, all pros and cons were explained. I am planning to restart his home medication. Has been having back pain which is chronic, we will restart pain medications Monitor blood pressure and lipids Clinical Quality Measures AMI/AHF: ASA po Prior to arrival: Yes (aspirin daily) DVT/VTE Risk/Contraindication: Risk Factor Score Per Nursin RFS Level Per Nursing on Admit: 4+=Very High MADDY LANDEROS August 05, 2019 08:48 FESTUS BAXTER MD August 05, 2019 09:00
--- NOTE | 2019-08-05 08:52 | NUR ---
PT TO COORDINATOR SKILL TRAINING PROGRAM AT 0840 VIA BED ACCOMPANIED BY COORDINATOR SKILL TRAINING PROGRAM STAFF.
[2019-08-05] MEDS: NS IV 1000 ML 1,000 ML IV SCH ×4 (09:00→20:33)
[2019-08-05] MEDS ORDERED: HEParin 1000 UNIT/ML (10ML VIAL) FOR BOLUS ONE (09:01)
[2019-08-05] MEDS ORDERED: NITRO DRIP 25000 MCG/D5W 250 ML IV ONE (09:06)
[2019-08-05] MEDS ORDERED: ASPIRIN 325 MG (5 GR) TABLET ONE (09:25)
[2019-08-05] MEDS ORDERED: CLOPIDOGREL 300 MG (PLAVIX) TABLET PO ONE (09:25)
[2019-08-05] MEDS ORDERED: CARISOPRODOL 350 MG (SOMA) TAB PO PRN (09:45)
[2019-08-05] MEDS ORDERED: LORazepam 0.5 MG (ATIVAN) TABLET PO PRN (09:45)
[2019-08-05] MEDS ORDERED: PATIENT MAY USE OWN MEDS, ALL PO SCH (09:45)
--- NOTE | 2019-08-05 09:49 | Cardiac Cath Report ---
Cardiac Cath Report Physician (s)/Exposure Machine Operator (s) Physician FESTUS MEDLEY MD Pre-Procedure Diagnosis Pre-Procedure Diagnosis: Non-ST elevation myocardial infarction Post-Procedure Note Procedure Start Date: August 05, 2019 Name of Procedure: Left heart catheterization Left ventriculogram Vein graft angiogram POWELL angiogram Stenting to the vein graft to the right coronary artery Findings/Procedure Note PROCEDURE NOTE: 69-year-old gentleman with history of coronary artery disease, CABG, admitted with acute non-ST elevation myocardial infarction, brought for emergency cardiac catheterization possible PTCA After explaining the procedure to the patient, all pros and cons were explained, all questions were answered. The patient signed the consent and then he was placed on the cardiac catheterization laboratory. Groin was prepped SL fashion local anesthesia was used. Sheath placed in the artery. Zayra right and left catheter were used to access the coronary system.Vein Graft evaluated. POWELL evaluated. Pigtail was used to access the left ventricular cavity. Left ventriculogram was done Patient was given 6000 units of heparin, FR guide with sideholes was used advanced to the vein/radial graft to the right coronary artery, BMW wire was advanced to the stent right coronary artery, predilatation with 3 x 20 balloon with multiple inflation then I proceeded with deployment of science Wendy 3 x 38 mm expanded to 3.1 under 14 axel, 200 g of intracoronary nitroglycerin were given, angiogram showed excellent results. At the end of the procedure the sheath was removed. Closure device was used FINDINGS: Hemodynamics LV 142/15, end-diastolic pressure of 15 Aorta 137/79 mean of 104 ANATOMY: Left Main has severe stenosis at the distal portion Left Anterior Descending LAD is patent, there is competitive flow from the POWELL Left Circumflex is occluded, the vein graft to the first OM is known to be occluded, vein graft to the second OM is patent, moderate to severe stenosis at the anastomosis point Right Coronory Artery is known to be occluded, the vein graft/radial graft has severe stenosis at the proximal and midportion, balloon angioplasty then deployment of Wendy 3 x 38 mm stent drug-eluting stent expanded to 3.1 mm with excellent results POWELL to LAD is patent Vein Graft evaluation shows 3 vein grafts The lower vein graft is a jump graft to the diagonal and the OM1 and known to be occluded The vein graft/radial to the right coronary artery has severe stenosis at the proximal and midportion, successful balloon angioplasty and stenting using Wendy 3 x 38 mm stent expanded to 3.1 mm with excellent results The vein graft to OM 2 is a large graft patent with moderate to severe stenosis at the anastomosis point LV Gram was done showing normal left ventricular size, hypokinesia at the inferior wall estimated ejection fraction 40-45 percent CONCLUSION: 1. Severe stenosis at the vein graft/radial artery to the right coronary artery, known to be a vein graft to the right PDA and PLV, successful balloon angioplasty and stenting using Wendy 3 x 38 mm stent expanded to 3.1 mm with excellent results 2. Patent large vein graft to the second obtuse marginal branch with moderate to severe stenosis at the anastomosis point, we will continue monitoring at this point 3. Patent POWELL to LAD with excellent flow in the LAD 4. Known to have occluded vein graft to the diagonal and first obtuse marginal branch 5. [place] coronary artery disease are known to have severe stenosis at the distal left main, occluded [place] circumflex artery and occluded [place] right coronary artery that did not change compared to 2016 study DISCUSSION AND RECOMMENDATION: Maximize medical therapy and continue monitoring Anesthesia Type: Conscious Sedation Estimated blood loss (mL): 25 ml Contrast Amount: 100 ml Total Radiation Dose: 1421 mGy Post-Procedure Diagnosis Post-operative diagnosis: Non-ST elevation myocardial infarction Coronary artery disease Hypertension Hyperlipidemia FESTUS MEDLEY MD August 05, 2019 09:49
[2019-08-05] MEDS ORDERED: FENO145T26 PO (10:08)
[2019-08-05] MEDS ORDERED: PREG100C55 PO (10:08)
[2019-08-05] MEDS ORDERED: AMLO10TA7 PO (10:08)
[2019-08-05] MEDS ORDERED: CYCL10TA9 PO (10:08)
[2019-08-05] MEDS ORDERED: POTA20TA15 PO (10:08)
[2019-08-05] MEDS ORDERED: ALPR0.5T7 PO (10:08)
[2019-08-05] MEDS ORDERED: OXYC-465 PO (10:08)
[2019-08-05] MEDS ORDERED: EZET10TA49 PO (10:08)
[2019-08-05] MEDS ORDERED: OMEG-160 PO (10:14)
[2019-08-05] MEDS ORDERED: ASPI-983 PO (10:14)
[2019-08-05] MEDS ORDERED: DOCU-143 PO (10:31)
[2019-08-05] MEDS ORDERED: EVOL140P3 SQ (10:43)
--- NOTE | 2019-08-05 10:46 | NUR ---
SPOKE WITH THE PATIENTS , WENT THRU THE EXT MED HISTORY AND CALLED [employer] TO COMPLETE THE MED REC THE LAST MED REC WAS DONE IN 2016- THE MEDS ON IT WERE CONTINUED BEFORE I HAD A CHANCE TO SPEAK WITH THE PT OR HIS . ALL THE CHANGES THAT WERE MADE I LET THE HIS NURSE KNOW SO WE CAN GET THE CORRECTS MEDS RESTARTED POTASSIUM 20MEQ: THE DIRECTIONS SHOW 1 TAB DAILY HOWEVER THE PT TAKES TAB DAILY FUROSEMIDE 40MG: THE DIRECTIONS SHOW 1 TAB DAILY HOWEVER THE PT TAKES 1 TAB EVERY OTHER DAY PT GETS REPATHA SURECLICK FROM THE PLASTIC MAKER, I CALLED [employer] TO FIND OUT WHAT STRENGTH AND THE LAST TIME IT WAS SENT OUT. THE LOGGING ENGINEER TOLD ME IT WAS THE SURECLICK 140MG BUT THE SYSTEM DID NOT SHOW WHEN IT WAS LAST SENT OUT. OTC MEDS: ASPIRIN 81 CALCIUM FISH OIL IBUPROFEN COLACE
[2019-08-05] MEDS: oxyCODONE/APAP 10/325MG (PERCOCET 10) TABLET PO PRN ×2 (11:10→20:54)
[2019-08-05] MEDS: OMEGA 3 (FISH OIL) 1000 MG CAP PO SCH ×2 (13:38→17:29)
--- NOTE | 2019-08-05 14:05 | Physician Query Clarification ---
PQ-Uncertain Diagnosis Admission/Discharge Admission Date: August 04, 2019 at 21:13 Discharge Date: The medical record reflects the following clinical scenario: History/Risk Factors: NSTEMI Coronary artery disease. Stenosis of coronary artery vein bypass grafts. Acute shortness of breath Clinical Findings: Per Dr. Mota consult: Acute shortness of breath with LLL infiltrate r/o pneumonia. Chest xray 08/03 Impression: Perihilar pulmonary opacities in part atelectasis, however pneumonia and/or edema superimposed could not be excluded, suspect small plerual effusion, no pneumothorax. Chest xray 08/04 Impression: Postsurgical changes. Perihilar atelectasis. No appreciable change from previous day's study. Procalcitonin 0.06. Treatment:Chest xrays, pulmonary consult,checked Procalcitonin Question: Is Pneumonia a clinically valid diagnosis? Acute SOB with LLL infiltrate r/o pneumonia was documented in the pulmonary consult-Dr. Mota with no further documentation in the medical record. Please document a response in Progress Note or Discharge Summary. 1. Yes, clinically valid, condition resolved. 2. No, condition ruled out. 3. Other, with explanation of clinical findings. 4. Undetermined, no explanation for clinical findings. PHYSICIAN RESPONSE Diagnosis clinically valid: Other, explanation/clinical finding Explanation of clincal finding Please ask the primary care physician Please remember a lack of response to the above will prompt a phone page by CDI/Coding staff. In responding to this query, please exercise your independent professional judgment. The purpose of this communication is to more accurately reflect the complexity of your patients condition. The fact that a question is asked does not imply that any particular answer is desired or expected. Thank you for your timely response to this clarification. Requestors name: Kecia Solis [facility] [place],[facility] Phone # ext [phone] or [phone] THIS PHYSICIAN QUERY FORM IS A PERMANENT PART OF THE MEDICAL RECORD KECIA SOLIS August 05, 2019 14:05 FESTUS MEDLEY MD August 05, 2019 14:21
--- NOTE | 2019-08-05 16:30 | History & Physical-Hospitalist ---
History of Present Illness HPI/Chief Complaint Jhonny Kitchen is a 69 year old male with PMH CAD s/p CABG, HTN, HLD, GERD, depression, anxiety, who presented with chest pain. He reports that the pain radiated to his left arm. He denies any associated diaphoresis, nausea, vomiting, or dyspnea. He says that the pain is similar to when he has had heart attacks in the past. He denies any fevers or chills. He denies any cough. He denies any abdominal pain. He is a nonsmoker. Source: patient, family Exam Limitations: no limitations Date Seen 08/05/19 Time Seen by a Provider: 16:15 Attending Physician Yonis Pandya MD PCP Jhonny Kilgore Referring Physician Date of Admission August 04, 2019 at 21:13 Home Medications & Allergies Home Medications Reviewed patient Home Medication Reconciliation performed by pharmacy medication reconciliations electronic test technician and/or nursing. Patients Allergies have been reviewed. Allergies Allergies Coded Allergies baclofen (Verified Allergy, Severe, DROPS HEART RATE, 05/02/15) tizanidine (Verified Allergy, Severe, DROP HEART RATE, 05/02/15) rosuvastatin (Verified Allergy, Unknown, 12/22/08) simvastatin (Verified Allergy, Unknown, 12/22/08) Past Djnvtpk-Huoyms-Ekqfzl Hx Past Med/Social Hx: Reviewed Nursing Past Med/Soc Hx Patient Social History Marrital Status: Employed/Student: employed Alcohol Use: Denies Use Recreational Drug Use: No Smoking Status: Never a Smoker 2nd Hand Smoke Exposure: No Recent Foreign Travel: No Contact w/other who traveled: No Recent Hopitalizations: No Recent Infectious Disease Expo: No Immunizations Up To Date Tetanus Booster (TDap): More than 5yrs Seasonal Allergies Seasonal Allergies: No Past Medical History Surgeries: CABG, Coronary Stent, Gallbladder Currently Using CPAP: Yes Cardiac: Coronary Artery Disease, Heart Attack, Hypertension Reproductive: No Genitourinary: Kidney Stones Gastrointestinal: Gastroesophageal Reflux, Gall Bladder Disease Musculoskeletal: Arthritis, Chronic Back Pain Loss of Vision: Denies Hearing Impairment: Hard of Hearing Psychosocial: Anxiety History of Blood Disorders: No Adverse Reaction to Blood Hardy: No Family History Cardiovascular disease 19 FATHER Hypercholesterolemia G8 BROTHER G8 SISTER Myocardial infarction 19 FATHER Review of Systems Constitutional: no symptoms reported EENTM: no symptoms reported Respiratory: no symptoms reported Cardiovascular: chest pain Gastrointestinal: no symptoms reported Genitourinary: no symptoms reported Musculoskeletal: no symptoms reported Skin: no symptoms reported Psychiatric/Neurological: No Symptoms Reported Physical Exam Physical Exam Vital Signs Vital Signs - First Documented Capillary Refill : Less Than 3 Seconds Height, Weight, BMI Height: 5'10.00" Weight: 250lbs. 0.0oz. 113.644632tq; 37.55 BMI Method:Stated General Appearance: No Apparent Distress, Obese HEENT: PERRL/EOMI, Pharynx Normal Neck: Normal Inspection, Supple Respiratory: Lungs Clear, Normal Breath Sounds, No Respiratory Distress Cardiovascular: Regular Rate, Rhythm, No Edema, No Murmur Gastrointestinal: Normal Bowel Sounds, Non Tender, Soft Extremity: Normal Inspection, Non Tender, No Pedal Edema Neurologic/Psychiatric: Alert, Oriented x3, No Motor/Sensory Deficits, Normal Mood/Affect Skin: Normal Color, Warm/Dry Results Results/Procedures Labs Laboratory Tests 08/04/19 20:33 08/05/19 03:15 Patient resulted labs reviewed. Imaging: Reviewed Imaging Report Assessment/Plan Admission Diagnosis NSTEMI Admission Status: Inpatient Order (span 2 midnights) Reason for Inpatient Admission: NSTEMI requiring cardiac catheterization Assessment and Plan NSTEMI CAD s/p CABG HTN HLD Troponin elevated at 0.9 on arrival, trended up to 2.4 this morning Cardiology consulted, appreciate assistance Underwent left heart catheterization this morning 08/04 Cardiac stent placed in RCA graft Continue aspirin and Plavix Continue beta lauro and MELANI inhibitor Intolerant to statins, taking Repatha as an outpatient GERD Continue PPI DVT prophylaxis: Lovenox Diagnosis/Problems Diagnosis/Problems (1) Non-STEMI (non-ST elevated myocardial infarction) Status: Acute Clinical Quality Measures AMI/AHF: ASA po Prior to arrival: Yes (aspirin daily) DVT/VTE Risk/Contraindication: Risk Factor Score Per Nursin RFS Level Per Nursing on Admit: 4+=Very High YONIS PANDYA MD August 05, 2019 16:30
[2019-08-05] MEDS: PREGABALIN 50 MG (LYRICA) CAP PO SCH (20:52)
[2019-08-05] MEDS: PANTOPRAZOLE 20 MG TABLET (PROTONIX) PO SCH (20:53)
[2019-08-05] MEDS ORDERED: ENOXAPARIN 40 MG/0.4 ML (LOVENOX) SYR SC SCH (21:00)
[2019-08-06] VITALS (10 sets, daily range): BP systolic 124–146; BP diastolic 64–87
[2019-08-06] MEDS: oxyCODONE/APAP 10/325MG (PERCOCET 10) TABLET PO PRN (02:25)
[2019-08-06 03:14] LABS: BASOPHILS % (AUTO) 1 % (0-10); EOSINOPHILS # (AUTO) 0.1 10^3/uL (0.0-0.3); EOSINOPHILS % (AUTO) 2 % (0-10); HEMATOCRIT 34 % (40-54); HEMOGLOBIN 11.4 G/DL (13.3-17.7); LYMPHOCYTES # (AUTO) 1.2 X 10^3 (1.0-4.0); LYMPHOCYTES % (AUTO) 20 % (12-44); MEAN CORPUSCULAR HEMOGLOBIN 30 PG (25-34); MEAN CORPUSCULAR HGB CONC 34 G/DL (32-36); MEAN CORPUSCULAR VOLUME 88 FL (80-99); MEAN PLATELET VOLUME 8.7 FL (7.4-10.4); MONOCYTES # (AUTO) 0.9 X 10^3 (0.0-1.0); MONOCYTES % (AUTO) 14 % (0-12); NEUTROPHILS # (AUTO) 3.8 X 10^3 (1.8-7.8); NEUTROPHILS % (AUTO) 64 % (42-75); PLATELET COUNT 281 10^3/uL (130-400); RED CELL DISTRIBUTION WIDTH 14.7 % (10.0-14.5)
[2019-08-06 03:32] LABS: CHLORIDE 105 MMOL/L (98-107); SODIUM 135 MMOL/L (135-145)
[2019-08-06 03:34] LABS: CALCIUM 9.3 MG/DL (8.5-10.1); GLUCOSE 110 MG/DL (70-105)
[2019-08-06 03:36] LABS: CARBON DIOXIDE 20 MMOL/L (21-32)
[2019-08-06 03:38] LABS: CREATININE SERUM 0.78 MG/DL (0.60-1.30); GFR ESTIMATED > 60; PHOSPHORUS 2.3 MG/DL (2.3-4.7)
[2019-08-06 03:39] LABS: BUN/CREATININE RATIO 14
[2019-08-06 03:40] LABS: MAGNESIUM 1.7 MG/DL (1.6-2.4)
--- NOTE | 2019-08-06 04:56 | Pulmonary Progress Note ---
Subjective Time Seen by a Provider: 04:54 Subjective/Events-last exam S/p Cath. No complications noted. Sepsis Event Evaluation Height, Weight, BMI Height: 5'10.00" Weight: 250lbs. 0.0oz. 113.823666im; 37.55 BMI Method:Stated Exam Exam Vital Signs Date Time Temp Pulse Resp B/P (MAP) Pulse Ox O2 Delivery O2 Flow Rate FiO2 08/06/19 04:00 97 Room Air 08/06/19 03:00 76 15 134/71 (92) 98 Room Air 08/06/19 02:00 93 15 145/77 (99) 95 Room Air 08/06/19 01:00 79 18 146/81 (102) 95 Room Air 08/06/19 01:00 80 08/06/19 00:00 77 18 142/78 (99) 96 Room Air 08/06/19 00:00 97 Room Air 08/05/19 23:00 80 13 144/82 (102) Room Air 08/05/19 22:00 85 20 151/89 (109) Room Air 08/05/19 21:00 85 15 146/84 (104) Room Air 08/05/19 20:11 36.2 81 18 146/77 (100) Room Air 08/05/19 20:00 96 Room Air 08/05/19 20:00 81 10 146/77 (100) Room Air 08/05/19 19:00 78 15 131/74 (93) Room Air 08/05/19 19:00 80 08/05/19 18:00 74 8 128/73 (91) Room Air 08/05/19 17:00 81 29 143/91 (108) 98 Room Air 08/05/19 16:34 97 Room Air 08/05/19 16:00 70 19 141/79 (99) 95 Room Air 08/05/19 15:37 36.0 08/05/19 15:00 71 8 142/77 (98) 97 Room Air 08/05/19 14:00 75 17 140/79 (99) 98 Room Air 08/05/19 13:04 84 08/05/19 13:00 82 141/82 (101) 94 Room Air 08/05/19 12:00 98 Room Air 08/05/19 12:00 78 7 155/85 (108) 98 Room Air 08/05/19 11:30 78 10 145/79 (101) 98 Room Air 08/05/19 11:00 78 12 141/84 (103) 98 Room Air 08/05/19 10:45 76 23 140/86 (104) 99 Room Air 08/05/19 10:30 74 10 142/86 (104) 98 Room Air 08/05/19 10:15 76 13 142/86 (104) 98 Room Air 08/05/19 10:00 75 13 142/82 (102) 97 Room Air 08/05/19 09:00 91 36 141/87 (105) 97 Room Air 08/05/19 08:00 96 Room Air 08/05/19 08:00 37.0 08/05/19 08:00 71 22 96 Room Air 08/05/19 07:01 71 08/05/19 07:00 72 21 155/89 (111) 97 Room Air 08/05/19 06:15 70 19 151/86 (107) 97 Room Air 08/05/19 05:08 75 21 144/92 (109) 97 Room Air I & O 08/06/19 07:00 Intake Total 720 ml Output Total 1700 ml Balance -980 ml Height & Weight Height: 5'10.00" Weight: 250lbs. 0.0oz. 113.157497zu; 37.55 BMI Method:Stated General Appearance: No Apparent Distress, Obese HEENT: PERRL/EOMI, Pharynx Normal Neck: Normal Inspection, Supple Respiratory: Lungs Clear, Normal Breath Sounds, No Respiratory Distress Cardiovascular: Regular Rate, Rhythm, No Edema, No Murmur Capillary Refill: Less Than 3 Seconds Extremity: Normal Inspection, Non Tender, No Pedal Edema Neurologic/Psychiatric: Alert, Oriented x3, No Motor/Sensory Deficits, Normal Mood/Affect Skin: Normal Color, Warm/Dry Results Lab Laboratory Tests 08/04/19 20:33 08/05/19 03:15 08/06/19 03:02 Assessment/Plan Assessment/Plan Acute SOB with LLL infiltrate-- probable pulmonary congestion - Doubt PNA -No leukocytosis, No fever - PCT- Normal -BNP is normal Acute CP with NSTEMI s/p cath -Cardiology following -Trend troponins Anemia -Monitor Probable home today NAVARRO FRANCISCO DO August 06, 2019 04:56
[2019-08-06] MEDS: POTASSIUM CL 10MEQ/50ML IVPB 50 ML IV SCH (05:03)
[2019-08-06] MEDS: MAGNESIUM 1 GM/100 ML IVPB 100 ML IV SCH (05:03)
[2019-08-06] MEDS: KCL 20 MEQ TAB (K-DUR) PO SCH (05:03)
[2019-08-06] MEDS: NS IV 1000 ML 1,000 ML IV SCH ×2 (05:03)
[2019-08-06] MEDS ORDERED: KCL 8 MEQ (MICRO K) TABLET PO SCH (07:00)
--- NOTE | 2019-08-06 07:52 | Diagnostic Imaging Report ---
INDICATION: Chest pain Portable chest 3:08 AM There are postoperative changes from CABG surgery. Heart size and pulmonary vascularity are normal. There continue to be some perihilar atelectasis. IMPRESSION: Stable chest from the previous day. There continues to be some perihilar atelectasis. Dictated by: Dictated on workstation # [id number]
--- NOTE | 2019-08-06 08:26 | Cardiology Progress Note ---
Subjective Date Seen by Provider: August 06, 2019 Time Seen by Provider: 08:23 Subjective/Events-last exam Patient is feeling well, no chest pain, groin is healing well Review of Systems General: No Chills, No Night Sweats, No Fatigue, No Malaise, No Appetite, No Other HEENT: No Head Aches, No Visual Changes, No Eye Pain, No Ear Pain, No Dysphasia, No Sinus Congestion, No Post Nasal Drip, No Sore Throat, No Other Pulmonary: No Dyspnea, No Cough, No Pleuritic Chest Pain, No Other Cardiovascular: No: Chest Pain, Palpitations, Orthopnea, Paroxysmal Noc. Dyspnea, Edema, Lt Headedness, Other Objective-Cardiology Exam Last Set of Vital Signs Vital Signs 08/05/19 08/06/19 20:11 06:00 Temp 36.2 Pulse 56 Resp 24 B/P (MAP) 139/77 (97) Pulse Ox 96 O2 Delivery Room Air Capillary Refill : Less Than 3 Seconds I&O Intake and Output 08/06/19 00:00 Intake Total 520 ml Output Total 2400 ml Balance -1880 ml Intake Oral 520 ml Output Urine Total 2400 ml General: Alert, Oriented X3, Cooperative HEENT: Atraumatic, PERRLA Neck: Supple, No JVD, No Thyromegaly Lungs: Clear to Auscultation, Normal Air Movement Heart: Regular Rate, Normal S1, Normal S2, No Murmurs Abdomen: Normal Bowel Sounds, Soft, No Tenderness, No Hepatosplenomegaly, No Masses Extremities: No Clubbing, No Cyanosis, No Edema, Normal Pulses, No Tenderness/Swelling Skin: No Rashes, No Breakdown, No Significant Lesion Neuro: Normal Gait, Normal Speech, Strength at 5/5 X4 Ext, Normal Tone, Sensat ion Intact Psych/Mental Status: Mental Status NL, Mood NL Results Lab Laboratory Tests 08/06/19 03:02 A/P-Cardiology Admission Diagnosis NSTEMI CAD HTN HLP Assessment/Plan Non-ST elevation myocardial infarction status post cardiac catheterization with stenting of the vein graft to the right coronary artery Coronary artery disease with history of CABG x6 with vein graft to OM 1, diago nal one, then graft to RPDA, RP LV, POWELL to LAD, vein graft to radial OM 2. Most recent cardiac catheterization done May 02, 2015 revealed severe stenosis at the mid left main with total occlusion of the circumflex artery. Vein graft to first obtuse marginal and diagonal branch are occluded. Patent POWELL to LAD, patent vein graft to second obtuse marginal. Totally occluded RCA with patent vein graft to the right posterior descending artery and posterior lateral branch was small vessel disease distally. Borderline stress test in July 2017 with diaphragmatic attenuation and mild decrease uptake at the mid to apical anterolateral and inferolateral wall with mild reversibility, SSS 6, SDS 2. Planning for [facility] this morning. Cardiac catheterization showed severe [place] coronary artery disease, patent POWELL to LAD, patent vein graft to OM 2, occluded vein graft to diagonal, severe stenosis of the vein graft to the right PDA/right PLV, status post stenting using 3 x 30 Wendy drug-eluting stent expanded to 3.1 mm. Patient will be on aspirin and Plavix for the next year Hypertension, good control, continue to monitor Hyperlipidemia, intolerance to statins causing severe myalgias, elevated LFTs. More specifically patient has tried Lipitor 20 mg, was increased to 40 mg in 2010, however stopped secondary to elevated LFTs in April 2015. He has also been intolerant to Zocor and Crestor causing myalgias. Niaspan was stopped 2014 secondary GI upset. Liver enzymes back normal after discontinuation of statin therapy. Started on Repatha and tolerating it well, reevaluate lipids Sick sinus syndrome, bradycardia, loss of energy. Improved after decreasing beta lauro, continue to monitor. Restless leg syndrome, lower extremity pain, discomfort. Follows with PCP Anxiety, reporting improvement with Xanax. Continue to monitor. Carotid artery stenosis, status post left carotid endarterectomy done by Dr. Sherwin Lou in November 2017. Continue to monitor Mild pulmonary hypertension, last echocardiogram was done in July 2017 showing normal LV size with EF 55-65 percent, grade 2 diastolic dysfunction, left atrium 4.7 cm, mild MR, PA 35 mmHg. Continue to monitor. History of GI bleed, continue to monitor Obesity, BMI is 36. We discussed weight loss and exercise. Obstructive sleep apnea, using C Pap machine. Chronic back pain, managed by primary care physician Clinical Quality Measures AMI/AHF: ASA po Prior to arrival: Yes (aspirin daily) DVT/VTE Risk/Contraindication: Risk Factor Score Per Nursin RFS Level Per Nursing on Admit: 4+=Very High FESTUS MEDLEY MD August 06, 2019 08:26
[2019-08-06] MEDS ORDERED: CLOP75TA28 PO (08:28)
[2019-08-06] MEDS ORDERED: PANT40SU PO (08:28)
--- NOTE | 2019-08-06 08:29 | Discharge Inst-Post CATH ---
Discharge Inst-CATH/EP Problems Reviewed?: Yes Post Cardiac Cath/EP D/C Inst Follow Up/Plan Appointment with Dr. Baxter's office in 2-4 weeks <b>CARDIAC CATH/EP PROCEDURE DISCHARGE INSTRUCTIONS</b> ACTIVITY * Go Home directly and rest. * Limit activity of the leg (or wrist if it was used) for 7 days including aerobics, swimming, jogging, bicycling, etc. * Restrict stair-climbing for 7 days if possible, if not, climb up with your non-cath leg, then bring together on the same step. * Avoid lifting, pushing, pulling or excessive movement of the affected extremity for 7 days. * Customary sexual activity may be resumed after 2 days-use caution not to use a position that strains or causes pain to the affected extremity. * No driving for 24 hours. * NO SMOKING. * Avoid straining for bowel movements for 7 days. * Gentle walking on level ground is allowed. * Returning to work will depend on the type of procedure and the results. Your doctor will discuss this with you. CALL YOUR DOCTOR FOR ANY OF THE FOLLOWING: *If bleeding from the puncture site occurs- Apply gentle pressure to site with clean cloth and call your doctor or EMS. * If a knot or lump forms under the skin, increases in size, or causes pain. * If bruising appears to be worsening or moving further down your leg instead of disappearing. * Temperature above 101 F. CARE OF YOUR GROIN INCISION; * Bruising or purple discoloration of the skin near the puncture site is common. * You may shower only, no bathtub bathing for 5 days. Be careful to avoid slipping as your leg may feel stiff. * If a closure device was used on your femoral artery, please see the attached guide regarding care of the device and your leg. * Leave dressing on FOR 24 hours. CARE OF YOUR WRIST INCISION; * Bruising or purple discoloration of the skin near the puncture site is common. * You may shower. * DO NOT submerge wrist. * Leave dressing on FOR 24 hours. FESTUS BAXTER MD August 06, 2019 08:29
[2019-08-06] MEDS: PREGABALIN 50 MG (LYRICA) CAP PO SCH (08:57)
[2019-08-06] MEDS: PANTOPRAZOLE 20 MG TABLET (PROTONIX) PO SCH (08:58)
[2019-08-06] MEDS: OMEGA 3 (FISH OIL) 1000 MG CAP PO SCH (08:58)
[2019-08-06] MEDS ORDERED: PARoxetine 20 MG (PAXIL) TAB PO SCH (09:00)
[2019-08-06] MEDS ORDERED: FUROSEMIDE 40 MG (LASIX) TAB PO SCH (09:00)
[2019-08-06] MEDS ORDERED: CLOPIDOGREL 75 MG (PLAVIX) TABLET PO SCH (09:00)
[2019-08-06] MEDS ORDERED: RAMIPRIL 5 MG (ALTACE) CAP PO SCH (09:00)
[2019-08-06] MEDS ORDERED: amLODIPine 5 MG (NORVASC) TAB PO SCH (09:00)
[2019-08-06] MEDS ORDERED: ASPIRIN E.C. 81 MG (ECOTRIN) TAB PO SCH (09:00)
--- NOTE | 2019-08-06 09:46 | NUR ---
PT DC TO POV AT THIS TIME. PT REFUSED WC.
--- NOTE | 2019-08-06 13:27 | Discharge Summary ---
Discharge Summary Hospital Course Was the Problem List Reviewed?: Yes Problems/Dx: (1) Non-STEMI (non-ST elevated myocardial infarction) Status: Acute Hospital Course Date of Admission: August 04, 2019 at 21:13 Admission Diagnosis : NSTEMI Family Physician/Provider: Jhonny Kilgore Date of Discharge: 08/06/19 Discharge Diagnosis: NSTEMI, CAD Hospital Course: Jhonny Kitchen is a 61-year-old male with past medical history of coronary artery disease status post coronary artery bypass grafting 6 who presented with chest pain and was admitted with non-ST elevation myocardial infarction. Cardiology was consulted and assisted with his care. He underwent a left heart catheterization and revealed an occlusion of his vein graft to the RCA. A cardiac stent was placed. He was started on Plavix. He has a documented intolerance to statins but is on Repatha. He will follow up with cardiology as scheduled. Labs and Pending Lab Test: Laboratory Tests 08/06/19 03:02: White Blood Count 6.0, Red Blood Count 3.86L, Hemoglobin 11.4L, Hematocrit 34L, Mean Corpuscular Volume 88, Mean Corpuscular Hemoglobin 30, Mean Corpuscular Hemoglobin Concent 34, Red Cell Distribution Width 14.7H, Platelet Count 281, Mean Platelet Volume 8.7, Neutrophils (%) (Auto) 64, Lymphocytes (%) (Auto) 20, Monocytes (%) (Auto) 14H, Eosinophils (%) (Auto) 2, Basophils (%) (Auto) 1, Neutrophils # (Auto) 3.8, Lymphocytes # (Auto) 1.2, Monocytes # (Auto) 0.9, Eosinophils # (Auto) 0.1, Basophils # (Auto) 0.0, Sodium Level 135, Potassium Level 4.0, Chloride Level 105, Carbon Dioxide Level 20L, Anion Gap 10, Blood Urea Nitrogen 11, Creatinine 0.78, Estimat Glomerular Filtration Rate > 60, BUN/Creatinine Ratio 14, Glucose Level 110H, Calcium Level 9.3, Phosphorus Level 2.3, Magnesium Level 1.7 Microbiology 08/04/19 MRSA Screen - Final, Complete MRSA not isolated Home Meds Active Protonix (Pantoprazole Sodium) 40 Mg Granpkt.dr 40 Mg PO DAILY Clopidogrel (Clopidogrel Bisulfate) 75 Mg Tablet 75 Mg PO DAILY Reported Repatha Sureclick (Evolocumab) 140 Mg/1 Ml Pen.injctr 140 Mg SQ Q 2 WEEKS Colace (Docusate Sodium) 100 Mg Capsule 100 Mg PO 3XWEEKLY Aspirin EC (Aspirin) 81 Mg Tablet.dr 81 Mg PO DAILY Fish Oil 1,000 mg Softgel (Zarephath-3/Dha/Epa/Fish Oil) 1 Each Capsule 1 Each PO TID Fenofibrate (Fenofibrate Nanocrystallized) 145 Mg Tablet 145 Mg PO HS Ezetimibe 10 Mg Tablet 10 Mg PO DAILY Pregabalin 100 Mg Capsule 100 Mg PO TID Potassium Chloride 20 Meq Tab.er.prt 10 Meq PO DAILY TAKES OF A 20MEQ DAILY Amlodipine Besylate 10 Mg Tablet 10 Mg PO DAILY Cyclobenzaprine HCl 10 Mg Tablet 10 Mg PO TID Alprazolam 0.5 Mg Tablet 0.5 Mg PO TID PRN Oxycodone-Acetaminophen 10-325 (Oxycodone HCl/Acetaminophen) 1 Each Tablet 1 Each PO Q4- 6H PRN MDD 3 Calcium (Calcium Carbonate) 600 Mg Tablet 600 Mg PO DAILY Paroxetine HCl 20 Mg Tablet 20 Mg PO HS Ramipril 10 Mg Capsule 10 Mg PO DAILY Metoprolol Succinate 25 Mg Tab.er.24h 12.5 Mg PO HS TAKES 1/2 (25MG) TABLET Furosemide 40 Mg Tablet 40 Mg PO Q48H Carisoprodol 350 Mg Tablet 350 Mg PO QID Assessment/Pt Instructions take medications as prescribed. Begin taking Plavix. 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 Discharge Planning: <30 minutes discharge planning Discharge Instructions Discharge Diet: Low Sodium Diet Activity as Tolerated: Yes Pneumonia Vaccine Order Indica: Yes Consultations cardiology Discharge Physical Examination Vital Signs Vital Signs Date Time Temp Pulse Resp B/P (MAP) Pulse Ox O2 Delivery O2 Flow Rate FiO2 08/06/19 09:00 61 9 131/64 (86) 95 Room Air 08/06/19 08:00 36.4 General Appearance: No Apparent Distress, Obese Respiratory: Lungs Clear, Normal Breath Sounds, No Respiratory Distress Cardiovascular: Regular Rate, Rhythm, No Edema, No Murmur Gastrointestinal: Normal Bowel Sounds, Non Tender, Soft Extremity: Normal Inspection, Non Tender, No Pedal Edema Skin: Normal Color, Warm/Dry Neurologic/Psychiatric: Alert, Oriented x3, No Motor/Sensory Deficits, Normal Mood/Affect Allergies: Coded Allergies: baclofen (Verified Allergy, Severe, DROPS HEART RATE, 05/02/15) tizanidine (Verified Allergy, Severe, DROP HEART RATE, 05/02/15) rosuvastatin (Verified Allergy, Unknown, 12/22/08) simvastatin (Verified Allergy, Unknown, 12/22/08) Discharge Summary Date of Admission August 04, 2019 at 21:13 Date of Discharge August 06, 2019 at 09:51 Discharge Date: August 06, 2019 Discharge Time: 09:51 Admission Diagnosis NSTEMI Consults/Procedures Consulations cardiology Procedures left heart catheterization Discharge Diagnosis NSTEMI, CAD (1) Non-STEMI (non-ST elevated myocardial infarction) Status: Acute (2) CAD (coronary artery disease) Status: Acute Qualifiers: Qualified Codes: I25.810 - Atherosclerosis of coronary artery bypass graft(s) without angina pectoris Clinical Quality Measures AMI/AHF: ASA po Prior to arrival: Yes (aspirin daily) DVT/VTE Risk/Contraindication: Risk Factor Score Per Nursin RFS Level Per Nursing on Admit: 4+=Very High YONIS PANDYA MD August 06, 2019 13:27
== END 2019-08-06 09:51 | disposition home or self-care (01) | DRG 247 ==
LOC: EDUNIT# 20:25 → ER 20:27 → ICU 21:13
PROVIDERS: ADMIT Internal Medicine; ATTEND Internal Medicine
PROC: 027034Z Dilation of Coronary Artery, One Artery with Drug-eluting Intraluminal Device, Percutaneous Approach (ICD-10-PCS; principal; 2019-08-05)
PROC: 4A023N7 Measurement of Cardiac Sampling and Pressure, Left Heart, Percutaneous Approach (ICD-10-PCS; 2019-08-05)
PROC: B2111ZZ Fluoroscopy of Multiple Coronary Arteries using Low Osmolar Contrast (ICD-10-PCS; 2019-08-05)
PROC: B2151ZZ Fluoroscopy of Left Heart using Low Osmolar Contrast (ICD-10-PCS; 2019-08-05)
PROC: B2121ZZ Fluoroscopy of Single Coronary Artery Bypass Graft using Low Osmolar Contrast (ICD-10-PCS; 2019-08-05)
PROC: B2181ZZ Fluoroscopy of Left Internal Mammary Bypass Graft using Low Osmolar Contrast (ICD-10-PCS; 2019-08-05)
DX: I21.4 Non-ST elevation (NSTEMI) myocardial infarction (principal); I25.810 Atherosclerosis of coronary artery bypass graft(s) without angina pectoris; I25.10 Atherosclerotic heart disease of native coronary artery without angina pectoris; I49.5 Sick sinus syndrome; R00.1 Bradycardia, unspecified; I10 Essential (primary) hypertension; E78.5 Hyperlipidemia, unspecified; I25.2 Old myocardial infarction; I27.20 Pulmonary hypertension, unspecified; I34.0 Nonrheumatic mitral (valve) insufficiency; R09.89 Other specified symptoms and signs involving the circulatory and respiratory systems; M54.9 Dorsalgia, unspecified; G25.81 Restless legs syndrome; E66.9 Obesity, unspecified; G47.33 Obstructive sleep apnea (adult) (pediatric); D64.9 Anemia, unspecified; K21.9 Gastro-esophageal reflux disease without esophagitis; M19.91 Primary osteoarthritis, unspecified site; F41.9 Anxiety disorder, unspecified; F32.9 Major depressive disorder, single episode, unspecified; M62.838 Other muscle spasm; Z95.1 Presence of aortocoronary bypass graft; Z95.5 Presence of coronary angioplasty implant and graft; Z68.37 Body mass index [BMI] 37.0-37.9, adult; Z79.82 Long term (current) use of aspirin; Z87.442 Personal history of urinary calculi
CPT/HCPCS: 36415; 71045; 80048; 80053; 80061; 83735; 83874; 83880; 84100; 84145; 84484; 85025; 85347; 85610; 85730; 87081; 93005; 93041; 93459; 96365

== ENCOUNTER 2019-09-18 05:55 | Inpatient (IN) | payer MEDICARE ==
[2019-09-18] VITALS (11 sets, daily range): BP systolic 88–140; BP diastolic 70–97
[~2019-09-18] VITALS: Ht 175 cm; Wt 115.5 kg
[~2019-09-18 05:55] MED LIST changes: +ALPR0.5T7 PO; +AMLO10TA7 PO; +ASPI-983 PO; +CLOP75TA28 PO; +CYCL10TA9 PO; +DOCU-143 PO; +EVOL140P3 SQ; +EZET10TA49 PO; +FENO145T26 PO; +OMEG-160 PO; +OXYC-465 PO; +PANT40SU PO; +POTA20TA15 PO; +PREG100C55 PO
[2019-09-18] MEDS ORDERED: ASPIRIN 81 MG CHEW (CHILDREN'S ASA) PO ONE (06:30)
[2019-09-18] MEDS ORDERED: NITROGLYCERIN 0.4 MG SL TABS BTL 25'S SL PRN (06:30)
[2019-09-18] MEDS ORDERED: CLOPIDOGREL 75 MG (PLAVIX) TABLET PO ONE (06:30)
--- NOTE | 2019-09-18 06:35 | ED Chest Pain ---
General Chief Complaint: Chest Pain Stated Complaint: CP Nursing Triage Note: pt reports having stents placed 6 weeks ago. pt has had ongoing chest pain since procedures. cp gets worse with exersion and gets soa. pain to bilateral arms and shoulders. bilateral lower extremity swelling. pt reports he came into the ed today because he anticipated his chest pain to get worse. Nursing Sepsis Screen: No Definite Risk Source: patient Exam Limitations: no limitations History of Present Illness Date Seen by Provider: Sep 18, 2019 Time Seen by Provider: 06:07 Initial Comments Here with report of any increasing chest pain since then placed 6 weeks ago. Notes that he has swelling of his legs. States that if he walks even of 100 feet he is significantly short of breath and chest pain worsens. Arrives today with concerns about increasing chest pain and concerns related to previous heart stent that was placed. States chest pain is central and goes to the shoulders and arms and sometimes to his back. Pain currently 2 out of 10 but better with rest. He did not take his aspirin or Plavix today. He has been using nitroglycerin with some success at home. Follows with Dr. Baxter. Denies any contact or exposure to COVID-19 either himself or his . He states his has been staying at home and he wears his mask when he is out. Denies fever or chills. Denies upper respiratory symptoms. 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 HELPER: No NTG SL PLISSE MACHINE OPERATOR HELPER: No Associated Symptoms: back pain; No diaphoresis; edema, fatigue; No fever/chills, No nausea/vomiting; shortness of breath Allergies and Home Medications Allergies Coded Allergies: baclofen (Verified Allergy, Severe, DROPS HEART RATE, 05/02/15) tizanidine (Verified Allergy, Severe, DROP HEART RATE, 05/02/15) rosuvastatin (Verified Allergy, Unknown, 12/22/08) simvastatin (Verified Allergy, Unknown, 12/22/08) Home Medications Alprazolam 0.5 Mg Tablet, 0.5 MG PO TID PRN for ANXIETY, (Reported) Amlodipine Besylate 10 Mg Tablet, 10 MG PO DAILY, (Reported) Aspirin 81 Mg Tablet.dr, 81 MG PO DAILY, (Reported) Calcium Carbonate 600 Mg Tablet, 600 MG PO DAILY, (Reported) Carisoprodol 350 Mg Tablet, 350 MG PO QID, (Reported) Clopidogrel Bisulfate 75 Mg Tablet, 75 MG PO DAILY Prescribed by: FESTUS BAXTER on 08/06/19827 Cyclobenzaprine HCl 10 Mg Tablet, 10 MG PO TID, (Reported) Docusate Sodium 100 Mg Capsule, 100 MG PO 3XWEEKLY, (Reported) Evolocumab 140 Mg/1 Ml Pen.injctr, 140 MG SQ Q 2 WEEKS, (Reported) Ezetimibe 10 Mg Tablet, 10 MG PO DAILY, (Reported) Fenofibrate Nanocrystallized 145 Mg Tablet, 145 MG PO HS, (Reported) Furosemide 40 Mg Tablet, 40 MG PO Q48H, (Reported) Metoprolol Succinate 25 Mg Tab.er.24h, 12.5 MG PO HS, (Reported) TAKES 1/2 (25MG) TABLET [place]-3/Dha/Epa/Fish Oil 1 Each Capsule, 1 EACH PO TID, (Reported) Oxycodone HCl/Acetaminophen 1 Each Tablet, 1 EACH PO Q4- 6H PRN for PAIN- MODERATE, (Reported) Pantoprazole Sodium 40 Mg Granpkt., 40 MG PO DAILY Prescribed by: FESTUS BAXTER on 08/06/19827 Paroxetine HCl 20 Mg Tablet, 20 MG PO HS, (Reported) Potassium Chloride 20 Meq Tab.er.prt, 10 MEQ PO DAILY, (Reported) TAKES OF A 20MEQ DAILY Pregabalin 100 Mg Capsule, 100 MG PO TID, (Reported) Ramipril 10 Mg Capsule, 10 MG PO DAILY, (Reported) Patient Home Medication List Home Medication List Reviewed: Yes Review of Systems Review of Systems Constitutional: see HPI; No chills, No fever EENTM: No Nose Congestion, No Throat Pain Respiratory: Denies Cough; Orthopnea, Shortness of Air, SOA With Exertion Cardiovascular: Chest Pain, Edema Gastrointestinal: Denies Abdominal Pain, Denies Diarrhea, Denies Nausea, Denies Vomiting Genitourinary: No Symptoms Reported Musculoskeletal: back pain; No muscle pain Skin: No change in color, No lesions Psychiatric/Neurological: No Symptoms Reported Endocrine: No Symptoms Reported All Other Systems Reviewed Negative Unless Noted: Yes Past Vxggckc-Yoxbxe-Bwysnb Hx Past Med/Social Hx: Reviewed Nursing Past Med/Soc Hx Patient Social History Alcohol Use: Denies Use Recreational Drug Use: No 2nd Hand Smoke Exposure: No Recent Foreign Travel: No Contact w/Someone Who Travel: No Recent Infectious Disease Expo: No Recent Hopitalizations: Yes (6 weeks ago, heart stents) Immunizations Up To Date Tetanus Booster (TDap): More than 5yrs Seasonal Allergies Seasonal Allergies: No Past Medical History Surgeries: Yes ( hernia, kidney stones x2) Cardiac, CABG, Coronary Stent, Gallbladder Respiratory: Yes Sleep Apnea Currently Using CPAP: Yes Cardiac: Yes Coronary Artery Disease, Heart Attack, High Cholesterol, Hypertension Neurological: Yes (MUSCLE SPASMS) Reproductive Disorders: No Genitourinary: Yes Kidney Stones Gastrointestinal: Yes Gastroesophageal Reflux, Gall Bladder Disease Musculoskeletal: Yes Arthritis, Chronic Back Pain Endocrine: No HEENT: No Loss of Vision: Denies Hearing Impairment: Hard of Hearing Cancer: No Psychosocial: Yes Anxiety Integumentary: No Blood Disorders: No Adverse Reaction/Blood Tranf: No Family Medical History Reviewed Nursing Family Hx Cardiovascular disease 19 FATHER Hypercholesterolemia G8 BROTHER G8 SISTER Myocardial infarction 19 FATHER Physical Exam Vital Signs Vital Signs - First Documented 09/18/19 06:10 Temp 36.6 Pulse 67 Resp 18 B/P (MAP) 122/66 (84) Pulse Ox 96 O2 Delivery Room Air Capillary Refill : Less Than 3 Seconds Height, Weight, BMI Height: 5'10.00" Weight: 250lbs. 0.0oz. 113.382662am; 43.00 BMI Method:Stated General Appearance: No Apparent Distress, WD/WN HEENT: PERRL/EOMI, Pharynx Normal Neck: Non Tender, Supple Respiratory: No Accessory Muscle Use, Crackles (bilateral up to mid lungs) Cardiovascular: Regular Rate, Rhythm, No Murmur Gastrointestinal: Non Tender, Soft Extremity: Normal Range of Motion, Non Tender, Pedal Edema (2+ up to just below the knees.) Neurologic/Psychiatric: Alert, Oriented x3 Skin: Normal Color, Warm/Dry Progress/Results/Core Measures Results/Orders Lab Results Laboratory Tests Test 09/18/19 06:21 Range/Units White Blood Count 4.9 4.3-11.0 10^3/uL Red Blood Count 3.45 L 4.35-5.85 10^6/uL Hemoglobin 10.1 L 13.3-17.7 G/DL Hematocrit 30 L 40-54 % Mean Corpuscular Volume 88 80-99 FL Mean Corpuscular Hemoglobin 29 25-34 PG Mean Corpuscular Hemoglobin Concent 33 32-36 G/DL Red Cell Distribution Width 14.4 10.0-14.5 % Platelet Count 258 130-400 10^3/uL Mean Platelet Volume 8.9 7.4-10.4 FL Neutrophils (%) (Auto) 54 42-75 % Lymphocytes (%) (Auto) 27 12-44 % Monocytes (%) (Auto) 15 H 0-12 % Eosinophils (%) (Auto) 4 0-10 % Basophils (%) (Auto) 1 0-10 % Neutrophils # (Auto) 2.6 1.8-7.8 X 10^3 Lymphocytes # (Auto) 1.3 1.0-4.0 X 10^3 Monocytes # (Auto) 0.7 0.0-1.0 X 10^3 Eosinophils # (Auto) 0.2 0.0-0.3 10^3/uL Basophils # (Auto) 0.0 0.0-0.1 10^3/uL Erythrocyte Sedimentation Rate 37 H 0-30 MM/HR Prothrombin Time 13.0 12.2-14.7 SEC INR Comment 0.9 0.8-1.4 Activated Partial Thromboplast Time 29 24-35 SEC D-Dimer 0.66 H 0.00-0.49 UG/ML Sodium Level 136 135-145 MMOL/L Potassium Level 4.0 3.6-5.0 MMOL/L Chloride Level 103 98-107 MMOL/L Carbon Dioxide Level 23 21-32 MMOL/L Anion Gap 10 5-14 MMOL/L Blood Urea Nitrogen 10 7-18 MG/DL Creatinine 0.92 0.60-1.30 MG/DL Estimat Glomerular Filtration Rate > 60 BUN/Creatinine Ratio 11 Glucose Level 102 70-105 MG/DL Calcium Level 9.6 8.5-10.1 MG/DL Corrected Calcium 9.8 8.5-10.1 MG/DL Magnesium Level 1.8 1.6-2.4 MG/DL Total Bilirubin 0.2 0.1-1.0 MG/DL Aspartate Amino Transf (AST/SGOT) 29 5-34 U/L Alanine Aminotransferase (ALT/SGPT) 28 0-55 U/L Alkaline Phosphatase 41 40-136 U/L Lactate Dehydrogenase 201 125-220 U/L Myoglobin 84.2 10.0-92.0 NG/ML Troponin I 1.576 *H <0.028 NG/ML C-Reactive Protein High Sensitivity 0.83 H 0.00-0.50 MG/DL B-Type Natriuretic Peptide 176.1 H <100.0 PG/ML Total Protein 7.1 6.4-8.2 GM/DL Albumin 3.8 3.2-4.5 GM/DL Procalcitonin 0.06 <0.10 NG/ML My Orders Orders - YANDY GUTIERREZ MD Cbc With Automated Diff (09/18/19:) Magnesium (09/18/19:) Chest 1 View, Ap/Pa Only (09/18/19:) Ekg Tracing (09/18/19:) Comprehensive Metabolic Panel (09/18/19:) Myoglobin Serum (09/18/19:) Protime With Inr (09/18/19:) Partial Thromboplastin Time (09/18/19:) O2 (09/18/19:) Monitor-Rhythm Ecg Trace Only (09/18/19:) Lipid Panel (09/19/19 06:00) Ed Iv/Invasive Line Start (09/18/19:) BNP (09/18/19:) Troponin I (09/18/19:) Aspirin Chewable Tablet (Baby Aspirin Ch (09/18/19 06:30) Clopidogrel Tablet (Plavix Tablet) (09/18/19 06:30) Nitroglycerin 0.4 Mg Btl 25's (Nitrostat (09/18/19 06:30) Procalcitonin (Pct) (09/18/19:27) Hs C Reactive Protein (09/18/19 06:27) Erythrocyte Sedimentation Rate (09/18/19 06:27) LDH (09/18/19 06:27) Fibrin Degradation Products (09/18/19:21) Furosemide Injection (Lasix Injection) (09/18/19 07:01) Furosemide Injection (Lasix Injection) (09/18/19 07:02) Enoxaparin Injection (Lovenox Injection) (09/18/19 07:45) Coronavirus Sars-Cov-2 So 2018 (09/18/19 07:38) Enoxaparin Injection (Lovenox Injection) (09/18/19 07:38) Enoxaparin Injection (Lovenox Injection) (09/18/19 07:38) Medications Given in ED Current Medications Medications Dose Ordered Sig/Francisco Route Start Time Stop Time Status Last Admin Dose Admin Aspirin 324 mg ONCE ONCE PO 09/18/19 06:30 09/18/19 06:31 DC 09/18/19 06:27 324 MG Clopidogrel Bisulfate 75 mg ONCE ONCE PO 09/18/19 06:30 09/18/19 06:31 DC 09/18/19 06:27 75 MG Vital Signs/I&O 09/18/19 09/18/19 06:10 06:10 Temp 36.6 Pulse 67 Resp 18 B/P (MAP) 122/66 (84) Pulse Ox 96 O2 Delivery Room Air Blood Pressure Mean: 84 Progress Progress Note : Progress Note Seen and evaluated. IV, labs, EKG and chest x-ray ordered. ASA 324 mg by mouth ordered. Plavix 75 mg by mouth ordered. Considered nitroglycerin sublingual but patient's blood pressure is 100 systolic. I do have concerns related to heart failure and BNP was added. Lasix 40 mg IV after chest x-ray appears to have pulmonary vascular congestion and due to the patient's shortness of breath. Monitor patient. 0737: Troponin elevated. I did discuss the case with Dr. Baxter. Does have a non-ST elevation OK findings and will go to [facility] today. He is requesting Lovenox 130 mg subcutaneous is ordered. Patient to be admitted to ICU with anticipation of going to catheter lab. We will go ahead and do COVID screening given current presentation. Admit, inpatient status. I did discuss the case with Dr. Jordan at 0744 who accepts patient for admission. Patient agrees with plan. Initial ECG Impression Date: Sep 18, 2019 Initial ECG Impression Time: 06:07 Initial ECG Rate: 59 Initial ECG Rhythm: Normal Sinus Comment Sinus rhythm with first-degree AV block. Nonspecific intraventricular conduction delay and left axis deviation. No evidence of ST elevation OK. Similar to previous of 08/04/19. Interpreted by me. Diagnostic Imaging Diagonstic Imaging: Xray Plain Films/CT/US/NM/MRI: chest Comments [facility] [place] NAME: [facility] REC#: [id number] PT STATUS: REG ER : 1950 PHYSICIAN: YANDY GUTIERREZ MD ADMIT DATE: 09/18/19/ER Draft Date of Exam:09/18/19 CHEST 1 VIEW, AP/PA ONLY INDICATION: Chest pain COMPARISON: 08/06/2019 FINDINGS: Single view of the chest demonstrates cardiac enlargement with stable central vascular congestion. Questionable trace effusions are present. There is no pneumothorax. Sternal wires are midline. IMPRESSION: Unchanged aeration of the lungs. Dictated on workstation # [id number] Dict: 09/18/19 0650 Trans: 09/18/19 0710 ROMEO [id number] Interpreted by: CLIFFORD BUITRAGO Electronically signed by: Departure Communication (Admissions) Time/Spoke to Admitting Phy: 07:44 Time/Spoke to Consulting Phy: 07:37 Impression Primary Impression: Non-ST elevation OK (NSTEMI) Additional Impression: COVID-19 evaluation Disposition: ADMITTED INPATIENT Condition: Stable Admissions Decision to Admit Reason: Admit from ER (General) Decision to Admit/Date: Sep 18, 2019 Time/Decision to Admit Time: 07:37 Departure-Patient Inst. Referrals: JU UPTON (PCP/Family) Primary Care Physician YANDY GUTIERREZ MD Sep 18, 2019 06:35
[2019-09-18 06:50] LABS: BASOPHILS % (AUTO) 1 % (0-10); EOSINOPHILS # (AUTO) 0.2 10^3/uL (0.0-0.3); EOSINOPHILS % (AUTO) 4 % (0-10); HEMATOCRIT 30 % (40-54); HEMOGLOBIN 10.1 G/DL (13.3-17.7); LYMPHOCYTES # (AUTO) 1.3 X 10^3 (1.0-4.0); LYMPHOCYTES % (AUTO) 27 % (12-44); MEAN CORPUSCULAR HEMOGLOBIN 29 PG (25-34); MEAN CORPUSCULAR HGB CONC 33 G/DL (32-36); MEAN CORPUSCULAR VOLUME 88 FL (80-99); MEAN PLATELET VOLUME 8.9 FL (7.4-10.4); MONOCYTES # (AUTO) 0.7 X 10^3 (0.0-1.0); MONOCYTES % (AUTO) 15 % (0-12); NEUTROPHILS # (AUTO) 2.6 X 10^3 (1.8-7.8); NEUTROPHILS % (AUTO) 54 % (42-75); PLATELET COUNT 258 10^3/uL (130-400); RED CELL DISTRIBUTION WIDTH 14.4 % (10.0-14.5); WHITE BLOOD COUNT 4.9 10^3/uL (4.3-11.0)
[2019-09-18 07:00] LABS: ALBUMIN 3.8 GM/DL (3.2-4.5); CHLORIDE 103 MMOL/L (98-107); SODIUM 136 MMOL/L (135-145)
[2019-09-18 07:01] LABS: CALCIUM 9.6 MG/DL (8.5-10.1)
[2019-09-18] MEDS ORDERED: FUROSEMIDE 40 MG/4 ML INJ (LASIX) IV STA (07:01)
[2019-09-18 07:02] LABS: GLUCOSE 102 MG/DL (70-105); TOTAL PROTEIN 7.1 GM/DL (6.4-8.2)
[2019-09-18] MEDS ORDERED: FUROSEMIDE 40 MG/4 ML INJ (LASIX) ONE (07:02)
[2019-09-18 07:04] LABS: BILIRUBIN,TOTAL 0.2 MG/DL (0.1-1.0); CARBON DIOXIDE 23 MMOL/L (21-32); FIBRIN DEGRADATION PRODUCTS 0.66 UG/ML (0.00-0.49); INR 0.9 (0.8-1.4)
[2019-09-18 07:06] LABS: ALKALINE PHOSPHATASE 41 U/L (40-136); CREATININE SERUM 0.92 MG/DL (0.60-1.30); GFR ESTIMATED > 60
[2019-09-18 07:07] LABS: BUN/CREATININE RATIO 11
--- NOTE | 2019-09-18 07:08 | NUR ---
phone call placed to pts , Denita, updated given and questions answered. states she has no further questions or concerns at this time. Will call her back with update.
[2019-09-18 07:09] LABS: ALANINE AMINOTRANSFERASE 28 U/L (0-55); MAGNESIUM 1.8 MG/DL (1.6-2.4)
--- NOTE | 2019-09-18 07:10 | Diagnostic Imaging Report ---
INDICATION: Chest pain COMPARISON: 08/06/2019 FINDINGS: Single view of the chest demonstrates cardiac enlargement with stable central vascular congestion. Questionable trace effusions are present. There is no pneumothorax. Sternal wires are midline. IMPRESSION: Unchanged aeration of the lungs. Dictated by: Dictated on workstation # [id number]
[2019-09-18] MEDS ORDERED: ENOXAPARIN 30 MG/0.3 ML (LOVENOX) SYR ONE (07:38)
[2019-09-18] MEDS ORDERED: ENOXAPARIN 100 MG/1 ML (LOVENOX) SYR ONE (07:38)
[2019-09-18] MEDS ORDERED: ENOXAPARIN 60 MG/0.6 ML (LOVENOX) SYR SC ONE (07:45)
--- NOTE | 2019-09-18 07:51 | NUR ---
phone call placed to pts . informed that patient would be admitted to icu room 4. informed that patient was swabbed for Covid-19 and therefore would not be allowed visitors unless the patient was negative. stated she understood and had no further questions or concerns at this time.
--- NOTE | 2019-09-18 08:00 | NUR ---
Attempted to call report to SILVER SPRAY WORKER. RN unavailable at this time.
--- NOTE | 2019-09-18 08:11 | NUR ---
Contact Info Denita Kitchen (cell) [phone]
--- NOTE | 2019-09-18 08:23 | NUR ---
PRINTER REPAIR TECHNICIAN still unavailable for report at this time.
[2019-09-18] MEDS ORDERED: ONDANSETRON 4 MG/2 ML (SDV) Z0FRAN IVP PRN (08:45)
[2019-09-18] MEDS ORDERED: FURO40TA4 PO (09:30)
[2019-09-18] MEDS ORDERED: ISOS30TA3 PO (09:31)
--- NOTE | 2019-09-18 11:08 | Consultation-Cardiology ---
HPI-Cardiology Cardiology Consultation Date of Consultation 09/18/19 Date of Admission Time Seen by Provider: 11:06 Indication: chest pain HPI 69-year-old gentleman with extensive cardiac history, history of CABG, recent stenting to the vein graft to the right coronary artery done in July 2019, was doing well post intervention, for the past 2 weeks he started to have increasing dyspnea on exertion and chest pain with exertion became worse yesterday after walking a short distance. Has been having chest pain on and off, came into the emergency room noted to have elevated troponin level. Currently he is chest pain-free. Home Medications & Allergies Allergies: Coded Allergies: baclofen (Verified Allergy, Severe, DROPS HEART RATE, 05/02/15) tizanidine (Verified Allergy, Severe, DROP HEART RATE, 05/02/15) rosuvastatin (Verified Allergy, Unknown, 12/22/08) simvastatin (Verified Allergy, Unknown, 12/22/08) Home Medication List Reviewed: Yes [id number]-[id number]-Rikkri Hx Patient Social History Marital Status: Employed/Student: retired Alcohol Use: Denies Use Recreational Drug Use: No 2nd Hand Smoke Exposure: No Recent Foreign Travel: No Recent Infectious Disease Expo: No Recent Hopitalizations: Yes (6 weeks ago, heart stents) Immunizations Up To Date Tetanus Booster (TDap): More than 5yrs Date of Pneumonia Vaccine: Sep 08, 2016 Past Medical History Discussed below Family Medical History Family History: 19 FATHER Cardiovascular disease Myocardial infarction G8 BROTHER Hypercholesterolemia G8 SISTER Hypercholesterolemia Review of Systems-General Review of Systems Constitutional: see HPI; No chills, No fever; malaise EENTM: see HPI, no symptoms reported Respiratory: see HPI; No cough; dyspnea on exertion; No hemoptysis, No orthopnea, No phlegm, No short of breath, No stridor, No wheezing, No other Cardiovascular: see HPI, chest pain, edema; No Hx of Intervention, No palpitations, No syncope, No vascular heart diseas, No other Gastrointestinal: no symptoms reported, see HPI Genitourinary: no symptoms reported, see HPI Musculoskeletal: see HPI, back pain; No muscle pain Skin: see HPI; No change in color, No lesions Psychiatric/Neurological: No Symptoms Reported, See HPI All Other Systems Reviewed Negative Unless Noted: Yes Reviewed Test Results Reviewed Test Results Lab Laboratory Tests Test 09/18/19 06:21 09/18/19 07:41 Range/Units White Blood Count 4.9 4.3-11.0 10^3/uL Red Blood Count 3.45 L 4.35-5.85 10^6/uL Hemoglobin 10.1 L 13.3-17.7 G/DL Hematocrit 30 L 40-54 % Mean Corpuscular Volume 88 80-99 FL Mean Corpuscular Hemoglobin 29 25-34 PG Mean Corpuscular Hemoglobin Concent 33 32-36 G/DL Red Cell Distribution Width 14.4 10.0-14.5 % Platelet Count 258 130-400 10^3/uL Mean Platelet Volume 8.9 7.4-10.4 FL Neutrophils (%) (Auto) 54 42-75 % Lymphocytes (%) (Auto) 27 12-44 % Monocytes (%) (Auto) 15 H 0-12 % Eosinophils (%) (Auto) 4 0-10 % Basophils (%) (Auto) 1 0-10 % Neutrophils # (Auto) 2.6 1.8-7.8 X 10^3 Lymphocytes # (Auto) 1.3 1.0-4.0 X 10^3 Monocytes # (Auto) 0.7 0.0-1.0 X 10^3 Eosinophils # (Auto) 0.2 0.0-0.3 10^3/uL Basophils # (Auto) 0.0 0.0-0.1 10^3/uL Erythrocyte Sedimentation Rate 37 H 0-30 MM/HR Prothrombin Time 13.0 12.2-14.7 SEC INR Comment 0.9 0.8-1.4 Activated Partial Thromboplast Time 29 24-35 SEC D-Dimer 0.66 H 0.00-0.49 UG/ML Sodium Level 136 135-145 MMOL/L Potassium Level 4.0 3.6-5.0 MMOL/L Chloride Level 103 98-107 MMOL/L Carbon Dioxide Level 23 21-32 MMOL/L Anion Gap 10 5-14 MMOL/L Blood Urea Nitrogen 10 7-18 MG/DL Creatinine 0.92 0.60-1.30 MG/DL Estimat Glomerular Filtration Rate > 60 BUN/Creatinine Ratio 11 Glucose Level 102 70-105 MG/DL Calcium Level 9.6 8.5-10.1 MG/DL Corrected Calcium 9.8 8.5-10.1 MG/DL Magnesium Level 1.8 1.6-2.4 MG/DL Total Bilirubin 0.2 0.1-1.0 MG/DL Aspartate Amino Transf (AST/SGOT) 29 5-34 U/L Alanine Aminotransferase (ALT/SGPT) 28 0-55 U/L Alkaline Phosphatase 41 40-136 U/L Lactate Dehydrogenase 201 125-220 U/L Myoglobin 84.2 10.0-92.0 NG/ML Troponin I 1.576 *H <0.028 NG/ML C-Reactive Protein High Sensitivity 0.83 H 0.00-0.50 MG/DL B-Type Natriuretic Peptide 176.1 H <100.0 PG/ML Total Protein 7.1 6.4-8.2 GM/DL Albumin 3.8 3.2-4.5 GM/DL Procalcitonin 0.06 <0.10 NG/ML Physical Exam Physical Exam Vital Signs Vital Signs - First Documented 09/18/19 06:10 Temp 36.6 Pulse 67 Resp 18 B/P (MAP) 122/66 (84) Pulse Ox 96 O2 Delivery Room Air Capillary Refill : Less Than 3 Seconds Height, Weight, BMI Height: 5'10.00" Weight: 250lbs. 0.0oz. 113.162961il; 43.55 BMI Method:Stated General Appearance: No Apparent Distress, WD/WN Eyes: Bilateral Eye Normal Inspection, Bilateral Eye PERRL, Bilateral Eye EOMI HEENT: PERRL/EOMI, Pharynx Normal Neck: Non Tender, Supple Respiratory: Chest Non Tender, No Accessory Muscle Use, Crackles (bilateral up to mid lungs) Cardiovascular: Regular Rate, Rhythm, No JVD, No Murmur, Systolic Murmur Gastrointestinal: Non Tender, Soft Back: Normal Inspection, No CVA Tenderness, No Vertebral Tenderness Extremity: Normal Range of Motion, Non Tender, Pedal Edema (2+ up to just below the knees.) Neurologic/Psychiatric: Alert, Oriented x3 Skin: Normal Color, Warm/Dry Lymphatic: No Adenopathy A/P-Cardiology Admission Diagnosis Non-ST elevation myocardial infarction Coronary artery disease Hypertension Hyperlipidemia Assessment/Plan Non-ST elevation myocardial infarction, accelerating angina, elevated troponin, planning for cardiac catheterization possible PTCA COVID pending Coronary artery disease with history of CABG x6 with vein graft to OM 1, diagonal one, then graft to RPDA, RP LV, POWELL to LAD, vein graft to radial OM 2. Most recent cardiac catheterization done May 02, 2015 revealed severe stenosis at the mid left main with total occlusion of the circumflex artery. Vein graft to first obtuse marginal and diagonal branch are occluded. Patent POWELL to LAD, patent vein graft to second obtuse marginal. Totally occluded RCA with patent vein graft to the right posterior descending artery and posterior lateral branch was small vessel disease distally. Borderline stress test in July 2017 with diaphragmatic attenuation and mild decrease uptake at the mid to apical anterolateral and inferolateral wall with mild reversibility, SSS 6, SDS 2. Planning for [facility] this morning. Cardiac catheterization done in July 2019 showed severe campo coronary artery disease, patent POWELL to LAD, patent vein graft to OM 2, occluded vein graft to diagonal, severe stenosis of the vein graft to the right PDA/right PLV, status post stenting using 3 x 30 Wendy drug- eluting stent expanded to 3.1, patient was feeling well after the cardiac catheterization in July, started to have chest pain for the past 2 weeks and increasing dyspnea on exertion, had elevated troponin, I'll proceed with cardiac catheterization Hypertension, restart home medication and monitor Hyperlipidemia, intolerance to statins causing severe myalgias, elevated LFTs. More specifically patient has tried Lipitor 20 mg, was increased to 40 mg in 2010, however stopped secondary to elevated LFTs in April 2015. He has also been intolerant to Zocor and Crestor causing myalgias. Niaspan was stopped 2013 secondary GI upset. Liver enzymes back normal after discontinuation of statin therapy. Started on Repatha and tolerating it well, I will evaluate lipid profile Sick sinus syndrome, bradycardia, loss of energy. Improved after decreasing beta lauro, continue to monitor. Restless leg syndrome, lower extremity pain, discomfort. Follows with PCP Anxiety, reporting improvement with Xanax. Continue to monitor. Carotid artery stenosis, status post left carotid endarterectomy done by Dr. Sherwin Lou in November 2017. Continue to monitor Mild pulmonary hypertension, last echocardiogram was done in July 2017 showing normal LV size with EF 55-65 percent, grade 2 diastolic dysfunction, left atrium 4.7 cm, mild MR, PA 35 mmHg. Continue to monitor. History of GI bleed, continue to monitor Obesity, BMI is 36. We discussed weight loss and exercise. Obstructive sleep apnea, using C Pap machine. Chronic back pain, managed by primary care physician Clinical Quality Measures AMI/AHF: ASA po Prior to arrival: No DVT/VTE Risk/Contraindication: Risk Factor Score Per Nursin RFS Level Per Nursing on Admit: 3=High FESTUS MEDLEY MD Sep 18, 2019 11:08 am
[2019-09-18] MEDS ORDERED: POTASSIUM CL 10MEQ/50ML IVPB 100 ML IV ONE (11:47)
[2019-09-18] MEDS: POTASSIUM CL 10MEQ/50ML IVPB 50 ML IV SCH ×2 (12:09→12:10)
--- NOTE | 2019-09-18 12:21 | History & Physical-Hospitalist ---
History of Present Illness HPI/Chief Complaint Jhonny Kitchen is a 61-year-old male with past medical history of hypertension, hyperlipidemia, coronary artery disease status post CABG, GERD, anxiety, depression, obstructive sleep apnea, who presented with chest pain. He had a non-ST elevation OK 6 weeks ago and underwent a left heart catheterization and had a stent placed. He reports that he has been on aspirin and Plavix since that time. He says he has been having intermittent chest pain. He says it is worse activity. He says that it radiates to his arm and neck. He denies any associated nausea or vomiting. He denies any diaphoresis. He has had asso ciated shortness of breath with minimal exertion. His chest pain is resolved at the time of my exam. Source: patient Exam Limitations: no limitations Date Seen 09/18/19 Time Seen by a Provider: 09:30 Attending Physician Maureen Pandya MD PCP Jhonny Kilgore Referring Physician Date of Admission Sep 18, 2019 at 07:45 Home Medications & Allergies Home Medications Reviewed patient Home Medication Reconciliation performed by pharmacy medication reconciliations operating room surgical technician and/or nursing. Patients Allergies have been reviewed. Allergies Allergies Coded Allergies baclofen (Verified Allergy, Severe, DROPS HEART RATE, 05/02/15) tizanidine (Verified Allergy, Severe, DROP HEART RATE, 05/02/15) rosuvastatin (Verified Allergy, Unknown, 12/22/08) simvastatin (Verified Allergy, Unknown, 12/22/08) Past Bqitsyo-Lhdnpj-Bhualg Hx Past Med/Social Hx: Reviewed Nursing Past Med/Soc Hx Patient Social History Marrital Status: Employed/Student: retired Alcohol Use: Denies Use Recreational Drug Use: No 2nd Hand Smoke Exposure: No Recent Foreign Travel: No Contact w/other who traveled: No Recent Hopitalizations: Yes (6 weeks ago, heart stents) Recent Infectious Disease Expo: No Immunizations Up To Date Tetanus Booster (TDap): More than 5yrs Date of Pneumonia Vaccine: Sep 08, 2016 Seasonal Allergies Seasonal Allergies: No Past Medical History Surgeries: Cardiac, CABG, Coronary Stent, Gallbladder Currently Using CPAP: Yes Cardiac: Coronary Artery Disease, Heart Attack, High Cholesterol, Hypertension Reproductive: No Genitourinary: Kidney Stones Gastrointestinal: Gastroesophageal Reflux, Gall Bladder Disease Musculoskeletal: Arthritis, Chronic Back Pain Loss of Vision: Denies Hearing Impairment: Hard of Hearing Psychosocial: Anxiety History of Blood Disorders: No Adverse Reaction to Blood Hardy: No Family History Reviewed Nursing Family Hx Cardiovascular disease 19 FATHER Hypercholesterolemia G8 BROTHER G8 SISTER Myocardial infarction 19 FATHER Review of Systems Constitutional: no symptoms reported EENTM: no symptoms reported Respiratory: dyspnea on exertion Cardiovascular: chest pain Gastrointestinal: no symptoms reported Genitourinary: no symptoms reported Musculoskeletal: no symptoms reported Skin: no symptoms reported Psychiatric/Neurological: No Symptoms Reported Physical Exam Physical Exam Vital Signs Vital Signs - First Documented 09/18/19 06:10 Temp 36.6 Pulse 67 Resp 18 B/P (MAP) 122/66 (84) Pulse Ox 96 O2 Delivery Room Air Capillary Refill : Less Than 3 Seconds Height, Weight, BMI Height: 5'10.00" Weight: 250lbs. 0.0oz. 113.988577sl; 43.55 BMI Method:Stated General Appearance: No Apparent Distress, Obese HEENT: PERRL/EOMI, Pharynx Normal Neck: Normal Inspection, Supple Respiratory: Lungs Clear, Normal Breath Sounds, No Respiratory Distress Cardiovascular: Regular Rate, Rhythm, No Edema, No Murmur Gastrointestinal: Normal Bowel Sounds, Non Tender, Soft Extremity: Normal Inspection, Non Tender, No Pedal Edema Neurologic/Psychiatric: Alert, Oriented x3, No Motor/Sensory Deficits, Normal Mood/Affect Skin: Normal Color, Warm/Dry Results Results/Procedures Labs Laboratory Tests 09/18/19 06:21 Patient resulted labs reviewed. Imaging: Reviewed Imaging Report Assessment/Plan Admission Diagnosis NSTEMI Admission Status: Inpatient Order (span 2 midnights) Reason for Inpatient Admission: NSTEMI requiring cardiology intervention Assessment and Plan NSTEMI CAD s/p CABG Hypertension Hyperlipidemia Given aspirin and Plavix in the ER Troponin elevated at 1.576 on arrival Cardiology consulted, appreciate assistance Planning for left heart catheterization Nothing by mouth Given therapeutic Lovenox in the ER Resume home meds after procedure Taking Repatha as an outpatient GERD Anxiety Depression Obstructive sleep apnea Continue home meds CPAP at night DVT prophylaxis: Lovenox Diagnosis/Problems Diagnosis/Problems (1) Non-ST elevation OK (NSTEMI) Status: Acute (2) CAD (coronary artery disease) Status: Acute (3) Hypertension Status: Chronic Qualifiers: Hypertension type: essential hypertension Qualified Codes: I10 - Essential (primary) hypertension (4) HLD (hyperlipidemia) Status: Chronic (5) GERD (gastroesophageal reflux disease) Status: Chronic (6) Anxiety and depression Status: Chronic (7) LAUREN (obstructive sleep apnea) Status: Chronic (8) Morbid obesity Status: Chronic Clinical Quality Measures AMI/AHF: ASA po Prior to arrival: No DVT/VTE Risk/Contraindication: Risk Factor Score Per Nursin RFS Level Per Nursing on Admit: 3=High MAUREEN PANDYA MD Sep 18, 2019 12:21
--- NOTE | 2019-09-18 13:06 | Pulmonary Consultation ---
History of Present Illness History of Present Illness Date Seen by Provider: Sep 18, 2019 Time Seen by Provider: 13:04 Date of Admission Reason for Visit: chest pain Allergies and Home Medications Allergies Coded Allergies: baclofen (Verified Allergy, Severe, DROPS HEART RATE, 05/02/15) tizanidine (Verified Allergy, Severe, DROP HEART RATE, 05/02/15) rosuvastatin (Verified Allergy, Unknown, 12/22/08) simvastatin (Verified Allergy, Unknown, 12/22/08) Home Medications Alprazolam 0.5 Mg Tablet, 0.5 MG PO TID PRN for ANXIETY, (Reported) Amlodipine Besylate 10 Mg Tablet, 10 MG PO DAILY, (Reported) Aspirin 81 Mg Tablet.dr, 81 MG PO DAILY, (Reported) Calcium Carbonate 600 Mg Tablet, 600 MG PO DAILY, (Reported) Carisoprodol 350 Mg Tablet, 350 MG PO QID, (Reported) Clopidogrel Bisulfate 75 Mg Tablet, 75 MG PO DAILY Prescribed by: FESTUS MEDLEY on 08/06/19827 Cyclobenzaprine HCl 10 Mg Tablet, 10 MG PO TID, (Reported) Docusate Sodium 100 Mg Capsule, 100 MG PO 3XWEEKLY, (Reported) Evolocumab 140 Mg/1 Ml Pen.injctr, 140 MG SQ Q 2 WEEKS, (Reported) Ezetimibe 10 Mg Tablet, 10 MG PO DAILY, (Reported) Fenofibrate Nanocrystallized 145 Mg Tablet, 145 MG PO HS, (Reported) Furosemide 40 Mg Tablet, 40 MG PO DAILY, (Reported) Isosorbide Mononitrate 30 Mg Tab.er.24h, 30 MG PO DAILY, (Reported) Metoprolol Succinate 25 Mg Tab.er.24h, 12.5 MG PO HS, (Reported) TAKES 1/2 (25MG) TABLET [place]-3/Dha/Epa/Fish Oil 1 Each Capsule, 1 EACH PO TID, (Reported) Oxycodone HCl/Acetaminophen 1 Each Tablet, 1 EACH PO Q4- 6H PRN for PAIN- MODERATE, (Reported) Pantoprazole Sodium 40 Mg Granpkt.dr, 40 MG PO DAILY Prescribed by: FESTUS MEDLEY on 08/06/19827 Paroxetine HCl 20 Mg Tablet, 20 MG PO HS, (Reported) Potassium Chloride 20 Meq Tab.er.prt, 10 MEQ PO DAILY, (Reported) TAKES OF A 20MEQ DAILY Pregabalin 100 Mg Capsule, 100 MG PO TID, (Reported) Ramipril 10 Mg Capsule, 10 MG PO DAILY, (Reported) Past Cmuokya-Telxht-Gjapfo Hx Past Med/Social Hx: Reviewed Nursing Past Med/Soc Hx Patient Social History Alcohol Use: Denies Use Recreational Drug Use: No 2nd Hand Smoke Exposure: No Recent Foreign Travel: No Contact w/Someone Who Travel: No Recent Infectious Disease Expo: No Recent Hopitalizations: Yes (6 weeks ago, heart stents) Immunizations Up To Date Tetanus Booster (TDap): More than 5yrs Date of Pneumonia Vaccine: Sep 08, 2016 Seasonal Allergies Seasonal Allergies: No Past Medical History Surgeries: Yes ( hernia, kidney stones x2) Cardiac, CABG, Coronary Stent, Gallbladder Respiratory: Yes Sleep Apnea Currently Using CPAP: Yes Cardiac: Yes Coronary Artery Disease, Heart Attack, High Cholesterol, Hypertension Neurological: Yes (MUSCLE SPASMS) Reproductive Disorders: No Genitourinary: Yes Kidney Stones Gastrointestinal: Yes Gastroesophageal Reflux, Gall Bladder Disease Musculoskeletal: Yes Arthritis, Chronic Back Pain Endocrine: No HEENT: No Loss of Vision: Denies Hearing Impairment: Hard of Hearing Cancer: No Psychosocial: Yes Anxiety Integumentary: No Blood Disorders: No Adverse Reaction/Blood Tranf: No Family Medical History Reviewed Nursing Family Hx Cardiovascular disease 19 FATHER Hypercholesterolemia G8 BROTHER G8 SISTER Myocardial infarction 19 FATHER Review of Systems Time Seen by Provider: 13:04 Sepsis Event Evaluation Height, Weight, BMI Height: 5'10.00" Weight: 250lbs. 0.0oz. 113.570565br; 43.55 BMI Method:Stated Exam Exam Vital Signs Date Time Temp Pulse Resp B/P (MAP) Pulse Ox O2 Delivery O2 Flow Rate FiO2 09/18/19 12:51 61 09/18/19 12:00 61 115/71 (86) Room Air 09/18/19 11:00 60 15 125/83 (97) Room Air 09/18/19 10:00 59 116/72 (87) 89 Room Air 09/18/19 09:35 98 Room Air 09/18/19 09:21 59 09/18/19 09:10 36.6 56 20 102/67 (83) 98 Room Air 09/18/19 09:00 62 118/72 (87) Room Air 09/18/19 08:07 55 21 103/73 (83) 97 Room Air 09/18/19 06:10 Room Air 09/18/19 06:10 36.6 67 18 122/66 (84) 96 Height & Weight Height: 5'10.00" Weight: 250lbs. 0.0oz. 113.148652sy; 43.55 BMI Method:Stated General Appearance: No Apparent Distress, Obese HEENT: PERRL/EOMI, Pharynx Normal Neck: Normal Inspection, Supple Respiratory: Lungs Clear, Normal Breath Sounds, No Respiratory Distress Cardiovascular: Regular Rate, Rhythm, No Edema, No Murmur Capillary Refill: Less Than 3 Seconds Extremity: Normal Inspection, Non Tender, No Pedal Edema Neurologic/Psychiatric: Alert, Oriented x3, No Motor/Sensory Deficits, Normal Mood/Affect Skin: Normal Color, Warm/Dry Lymphatic: No Adenopathy Results Lab Laboratory Tests 09/18/19 06:21 Assessment/Plan Assessment/Plan NSTEMI -Cardiology following -Planning on cath CAD s/p CABG Depression and Anxiety LAUREN NAVARRO FRANCISCO DO Sep 18, 2019 13:06
[2019-09-18] MEDS ORDERED: CLOP75TA69 PO (14:01)
[2019-09-18] MEDS ORDERED: PANT40TA3 PO (14:01)
--- NOTE | 2019-09-18 14:03 | NUR ---
SPOKE WITH THE PT (I CALLED HIS CELL PHONE- HE ALSO HAD A MED LIST ON HIS CHART) AND WENT THRU THE EXT MED HISTORY TO COMPLETE THE MED REC THE MED LIST THE PT HAS ON HIS FILE SEEMS TO BE OUT OF DATE- LYRICA, POTASSIUM, SOMA, IBUPROFEN, (NO LONGER TAKING) AND OMEPRAZOLE (NO LONGER TAKING) ARE ALL LISTED HOWEVER THESE THE FIRST 3 DIRECTIONS OR STRENGTHS HAVE CHANGED. POTASSIUM 20MEQ: ON THE EXT MED HISTORY IT SAYS 1 TAB DAILY HOWEVER THE PT BREAKS THEM AND TAKES TAB DAILY OTC MEDS: FISH OIL ASPIRIN 81 CALCIUM CARBONATE
[2019-09-18] MEDS ORDERED: NS IV 1000 ML 0 ML ONE (16:17)
[2019-09-18] MEDS ORDERED: NS IV 1000 ML 1,000 ML IV SCH (16:30)
[2019-09-18] MEDS ORDERED: CATHETER FLUSH 10 ML SYR IV PRN (16:30)
[2019-09-18] MEDS ORDERED: LIDOCAINE 1% INJ 20 ML 20 ML VIAL ONE ×2 (16:46→17:27)
[2019-09-18] MEDS ORDERED: NS IV 1000 ML 1,000 ML ONE (16:47)
[2019-09-18] MEDS ORDERED: HEParin (CATH LAB) 2,000 ML IV ONE (16:47)
[2019-09-18] MEDS ORDERED: MIDAZOLAM 5 MG/5 ML (VERSED) VIAL ONE (16:56)
[2019-09-18] MEDS ORDERED: fentaNYL INJECTION 100 MCG/2 ML AMP ONE (16:56)
[2019-09-18] MEDS ORDERED: HEParin 1000 UNIT/ML (10ML VIAL) FOR BOLUS ONE (17:31)
[2019-09-18] MEDS ORDERED: NITRO DRIP 25000 MCG/D5W 250 ML IV ONE (17:35)
[2019-09-18] MEDS ORDERED: EPTIFIBATIDE BOLUS 20 ML IV ONE (17:39)
--- NOTE | 2019-09-18 17:54 | Cardiac Procedure Note-CS/ASA ---
Pre-Procedure Note Pre-Op Procedure Note H&P Reviewed The H&P was reviewed, patient examined and no changes noted. Date H&P Reviewed: Sep 18, 2019 Time H&P Reviewed: 16:00 Conscious Sedation Pre-Proced Time 16:00 ASA Score 3 For ASA 3 and 4: Consider anesthesia and medical clearance. Also, for patients with a history of failed moderate sedation consider anesthesia. Airway Lungs Heart ASA score ASA 1: a normal healthy patient ASA 2: a patient with a mild systemic disease (mid diabetes, controlled hypertension, obesity x ASA 3: a patient with a severe systemic disease that limits activity (angina, COPD, prior Myocardial infarction) ASA 4: a patient with an incapacitating disease that is a constant threat to life (CHF, renal failure) ASA 5: a moribund patient not expected to survive 24 hrs. (ruptured aneurysm) ASA 6: a declared brain- patient whose organs are being harvested. For emergent operations, add the letter E after the classification Mallampati Classification Grade 3 Sedation Plan Analgesia, Amnesia, Plan communicated to team members, Discussed options with patient/fam, Discussed risks with patient/fam The patient is an appropriate candidate to undergo the planned procedure, sedation, and anesthesia. The patient immediately re-assessed prior to indication. FESTUS MEDLEY MD Sep 18, 2019 17:54
[2019-09-18] MEDS ORDERED: ASPIRIN 81 MG CHEW (CHILDREN'S ASA) ONE (17:56)
[2019-09-18] MEDS ORDERED: CLOPIDOGREL 300 MG (PLAVIX) TABLET PO ONE (17:56)
[2019-09-18] MEDS ORDERED: PATIENT MAY USE OWN MEDS, ALL PO SCH (18:00)
--- NOTE | 2019-09-18 18:03 | Cardiac Cath Report ---
Cardiac Cath Report Physician (s)/Lift Team Technician (s) Physician FESTUS MEDLEY MD Pre-Procedure Diagnosis Pre-Procedure Diagnosis: Non-ST elevation myocardial infarction Post-Procedure Note Procedure Start Date: Sep 18, 2019 Name of Procedure: Left heart catheterization Vein graft angiogram PTCA to the vein graft to the circumflex artery Findings/Procedure Note PROCEDURE NOTE: 69 years old gentleman with history of coronary artery disease, CABG, underwent recent stenting to the vein graft to the right coronary artery with excellent results, had a borderline lesion in the vein graft to the circumflex artery that was treated conservatively. Return with acute chest pain and elevated troponin. No acute EKG changes. COVID testing Was negative. We proceeded with cardiac catheterization After explaining the procedure to the patient, all pros and cons were explained, all questions were answered. The patient signed the consent and then he was placed on the cardiac catheterization laboratory. Groin was prepped SL fashion local anesthesia was used. Sheath placed in the right femoral artery. Zayra right and left catheter were used to access the coronary system.Vein Graft evaluated. POWELL was not evaluated, as well as checked in July procedure and did not have any significant disease. Pigtail was used to access the left ventricular cavity. Left ventriculogram was not done, pressure was measured Patient received 6000 units of heparin, bolus of Integrilin. He has slow flow in the vein graft to the circumflex artery with significant progression in the lesion at the anastomosis point of the vein graft to the circumflex artery with slow flow. FR guide was advanced to the vein graft, BMW wire was advanced and parked distally then balloon angioplasty was done using 3 x 15 mm emerge balloon, results were satisfactory significant improvement and excellent flow. Due to the fact that there was 90 angle between the vein graft and the circumflex artery and the lesion was at the anastomosis point. I was hesitant to place a stent. I was satisfied with the results of the balloon angioplasty and will continue to monitor if there is recurrence will consider stenting that area At the end of the procedure the sheath was removed. Closure device was used FINDINGS: Hemodynamics LV 130/11, end-diastolic pressure of 11 Aorta 121/67 mean of 90 ANATOMY: Left Main has severe distal stenosis giving the first diagonal artery of the LAD beyond that the LAD is occluded there is competitive flow from the POWELL Left Anterior Descending is occluded at the midportion. There is competitive flow from the POWELL the POWELL was not evaluated on this study Left Circumflex is occluded the vein graft to the circumflex artery has severe stenosis at the anastomosis point with slow flow successful balloon angioplasty with excellent results Right Coronory Artery is occluded the vein graft to the right coronary artery has a proximal stent that is patent with excellent flow distally POWELL was not evaluated on this study is known to be open and signs of comp etitive flow in the LAD was noted Vein Graft evaluation showed 2 vein graft. Vein graft to the circumflex artery has severe stenosis at the end of the stenosis point we slow flow. Balloon angioplasty using 3 x 15 emerge balloon was successful in reestablishing excellent flow and no residual stenosis. I am hesitant to place a stent as described above. We'll continue monitoring if the lesion recurred will consider placement of a stent. Vein graft to the right coronary artery has a proximal stent that is patent with excellent flow distally LV Gram was not done, pressure was measured CONCLUSION: 1. Severe stenosis at the vein graft to the circumflex artery at the anastomosis point successful alone angioplasty using 3 x 15 emerge balloon with excellent results. Excellent flow. I consider placement of stent but due to fact that the anastomosis point is at 90 and the lesion is exactly at the anastomosis point I was hesitant to place the stent and will give the balloon angioplasty a chance and evaluate if there is any recurrence will consider placement of a stent. 2. Patent stent in the vein graft to the right coronary artery with excellent flow distally 3. Severe stenosis at the distal left main that is giving the proximal LAD and first diagonal branch. We'll continue monitoring and consider stenting that area if needed 4. Occluded mid LAD with competitive flow from the POWELL, it was not evaluated on this study 5. Normal left ventricular end-diastolic pressure DISCUSSION AND RECOMMENDATION: I will continue maximizing medical therapy and monitor for recurrence of the les ion of the vein graft to the circumflex artery and consider intervention on the distal left if needed Anesthesia Type: Conscious Sedation Estimated blood loss (mL): 25 ml Contrast Amount: 100 ml Total Radiation Dose: 1198 mGy Post-Procedure Diagnosis Post-operative diagnosis: Non-ST elevation myocardial infarction Coronary artery disease Hypertension Hyperlipidemia FESTUS MEDLEY MD Sep 18, 2019 18:03
[2019-09-18] MEDS: morphine INJ 4 MG/ML 1 ML (VIAL/SYRINGE) IVP PRN ×2 (18:32→21:07)
[2019-09-18] MEDS: oxyCODONE/APAP 10/325MG (PERCOCET 10) TABLET PO PRN ×2 (18:32→22:48)
[2019-09-18] MEDS: NS IV 1000 ML 1,000 ML IV SCH ×3 (18:44→21:26)
[2019-09-18] MEDS: ALPRAZolam 0.5 MG (XANAX) TAB PO PRN ×2 (18:55→23:28)
--- NOTE | 2019-09-18 19:00 | NUR ---
BEDSIDE REPORT RECEIVED FROM RN AT THIS TIME. EDUCATED PT NOT TO LIFT HEAD OR MOVE LEG OR PT COULD POSSIBLY BLEED. DAY SHIFT AND MUSIC THEORY PROFESSOR RN REITERATED THIS WITH PT MULTIPLES TIMES WHILE IN THE ROOM. GROIN SITE CHECKED AT THIS TIME. MODERATE AMT OF SWELLING. DRESSING SMALL AMT DRAINAGE-CIRCLED.
[2019-09-18] MEDS: PREGABALIN 100 MG (LYRICA) CAPSULE PO SCH (20:10)
[2019-09-18] MEDS ORDERED: PARoxetine 20 MG (PAXIL) TAB PO SCH (21:00)
[2019-09-18] MEDS ORDERED: NON-FORMULARY MEDICATION 1 EA EA (Fenofibrate Nanocrystallized (Fenofibrate) 145 MG) PO SCH (21:00)
[2019-09-18] MEDS ORDERED: FENOFIBRATE 134 MG (LOFIBRA) CAPSULE PO SCH (21:00)
[2019-09-18] MEDS ORDERED: eZETimibe 10 MG (ZETIA) TABLET PO SCH (21:00)
--- NOTE | 2019-09-18 21:30 | NUR ---
2099-CHECKED PTS GROIN SITE WITH SECOND RN CATHLEEN MILES. NOTICEABLE CHANGE IN SWELLING. CASH APPLICATIONS SPECIALIST ALSO VERIFIED GROIN SITE. CASH APPLICATIONS SPECIALIST NOTIFIED DOWNSTAIRS MAID EMELYN CHEN. 2104- MANUAL PRESSURE HELD BY THIS RN. 2109-DOWNSTAIRS MAID EMELYN CHEN AT BEDSIDE TO HOLD MANUAL PRESSURE AND MASSAGE HEMATOMA. 2114-FEMSTOP APPLIED AT THIS TIME BY DOWNSTAIRS MAID EMELYN CHEN. 2129-DR. MEDLEY NOTIFIED. NO NEW ORDERS AT THIS TIME. Addendum: 09/19/19 at 0213 by JENNIFER HOLLAND RN DOWNSTAIRS MAID EMELYN CHEN REITERATED TO PT NOT TO MOVE LEG, OR HEAD AT ANY TIME, TO THIS IS WHAT IS CAUSING PT TO BLEED. RN, CASH APPLICATIONS SPECIALIST ALL IN ROOM EDUCATING PT MULTIPLE TIMES THROUGH THIS PROCESS.
--- NOTE | 2019-09-18 23:30 | NUR ---
RN IN TO ASSESS PTS GROIN SITE. THIS RN NOTICED PT HAD MOVED HIS LEG APPROX 6 INCHES. REITERATED EDUCATION TO PT AGAIN NOT TO MOVE LEG OR LIFT HEAD.
[2019-09-19] VITALS (12 sets, daily range): BP systolic 95–135; BP diastolic 61–78
--- NOTE | 2019-09-19 00:26 | NUR ---
2350-WENT TO CHECK GROIN SITE AND THIS RN NOTICED SWELLING IN GROIN AREA NOTICEABLY LARGER THAN BEFORE. VERIFIED SWELLING WITH ELECTRICAL ENGINEERING TECHNICIAN. 2355-FEMSTOP REMOVED BY ELECTRICAL ENGINEERING TECHNICIAN. MANUAL PRESSURE HELD AT GROIN SITE FOR 20 MINS BY HS. GROIN SITE ALSO MASSAGED. 2315-FEMSTOP PLACED BACK ON PTS GROIN SITE.
--- NOTE | 2019-09-19 02:25 | NUR ---
PT COMPLAINING OF THROBBING PAIN IN RIGHT LEG. ON ASSESSMENT GROIN SITE SOFT, NO HEMATOMA OR BLEEDING FROM SITE. RIGHT PEDAL PULSE WEAK BUT PRESENT. FEMOSTOP TAKEN OFF AT THIS TIME.
[2019-09-19] MEDS: oxyCODONE/APAP 10/325MG (PERCOCET 10) TABLET PO PRN ×2 (02:42→12:57)
--- NOTE | 2019-09-19 02:42 | NUR ---
GROIN SITE SOFT AT THIS TIME. REITERATED EDUCATION WITH PT NOT TO LIFT HEAD OR MOVE LEG AT ALL. PAIN MEDICATION GIVEN TO PT.
[2019-09-19] MEDS: morphine INJ 4 MG/ML 1 ML (VIAL/SYRINGE) IVP PRN ×2 (03:02→06:04)
[2019-09-19 04:01] LABS: ALBUMIN 3.5 GM/DL (3.2-4.5); CHLORIDE 105 MMOL/L (98-107); POTASSIUM 3.7 MMOL/L (3.6-5.0); SODIUM 135 MMOL/L (135-145)
[2019-09-19 04:02] LABS: CALCIUM 8.4 MG/DL (8.5-10.1)
[2019-09-19 04:03] LABS: TRIGLYCERIDES 182 MG/DL (<150); VLDL CHOLESTEROL 36 MG/DL (5-40)
[2019-09-19 04:04] LABS: CARBON DIOXIDE 20 MMOL/L (21-32); GLUCOSE 95 MG/DL (70-105); TOTAL PROTEIN 6.5 GM/DL (6.4-8.2)
[2019-09-19 04:05] LABS: BILIRUBIN,TOTAL 0.5 MG/DL (0.1-1.0)
[2019-09-19 04:06] LABS: BASOPHILS % (AUTO) 0 % (0-10); EOSINOPHILS # (AUTO) 0.1 10^3/uL (0.0-0.3); EOSINOPHILS % (AUTO) 2 % (0-10); HEMATOCRIT 28 % (40-54); HEMOGLOBIN 9.3 G/DL (13.3-17.7); LYMPHOCYTES # (AUTO) 1.1 X 10^3 (1.0-4.0); LYMPHOCYTES % (AUTO) 18 % (12-44); MEAN CORPUSCULAR HEMOGLOBIN 29 PG (25-34); MEAN CORPUSCULAR HGB CONC 34 G/DL (32-36); MEAN CORPUSCULAR VOLUME 88 FL (80-99); MEAN PLATELET VOLUME 9.2 FL (7.4-10.4); MONOCYTES # (AUTO) 0.7 X 10^3 (0.0-1.0); MONOCYTES % (AUTO) 12 % (0-12); NEUTROPHILS # (AUTO) 4.2 X 10^3 (1.8-7.8); NEUTROPHILS % (AUTO) 68 % (42-75); PHOSPHORUS 3.2 MG/DL (2.3-4.7); PLATELET COUNT 274 10^3/uL (130-400); RED CELL DISTRIBUTION WIDTH 14.7 % (10.0-14.5); WHITE BLOOD COUNT 6.2 10^3/uL (4.3-11.0)
[2019-09-19 04:07] LABS: ALKALINE PHOSPHATASE 43 U/L (40-136); GFR ESTIMATED > 60
[2019-09-19 04:08] LABS: BUN/CREATININE RATIO 11; CHOLESTEROL 96 MG/DL (< 200)
[2019-09-19 04:09] LABS: HDL CHOLESTEROL 25 MG/DL (40-60)
[2019-09-19 04:10] LABS: ALANINE AMINOTRANSFERASE 54 U/L (0-55); MAGNESIUM 1.7 MG/DL (1.6-2.4)
[2019-09-19] MEDS: NS IV 1000 ML 1,000 ML IV SCH (05:33)
--- NOTE | 2019-09-19 06:08 | Pulmonary Progress Note ---
Subjective Time Seen by a Provider: 06:07 Sepsis Event Evaluation Height, Weight, BMI Height: 5'10.00" Weight: 250lbs. 0.0oz. 113.032370px; 43.55 BMI Method:Stated Exam Exam Vital Signs Date Time Temp Pulse Resp B/P (MAP) Pulse Ox O2 Delivery O2 Flow Rate FiO2 09/19/19 04:00 87 17 103/73 (83) 94 Room Air 09/19/19 03:51 37.2 09/19/19 03:50 Room Air 09/19/19 03:00 84 23 131/75 (93) 96 Room Air 09/19/19 02:00 89 34 116/74 (88) 94 Room Air 09/19/19 01:00 81 09/19/19 01:00 81 25 111/70 (84) 94 Room Air 09/19/19 00:54 Room Air 09/19/19 00:00 37.5 09/19/19 00:00 88 14 103/68 (80) 96 Room Air 09/18/19 23:00 64 19 88/70 (76) 97 Room Air 09/18/19 22:00 82 41 110/73 (85) 98 Room Air 09/18/19 21:00 81 18 129/76 (93) 98 Room Air 09/18/19 20:00 36.7 09/18/19 20:00 Room Air 09/18/19 20:00 84 18 116/86 (96) 98 Room Air 09/18/19 19:00 82 09/18/19 19:00 82 7 137/91 (106) 97 Room Air 09/18/19 18:15 76 140/97 (111) Room Air 09/18/19 16:00 93 Room Air 09/18/19 13:55 36.8 09/18/19 12:51 61 09/18/19 12:00 61 115/71 (86) Room Air 09/18/19 12:00 93 Room Air 09/18/19 11:00 60 15 125/83 (97) Room Air 09/18/19 10:00 59 116/72 (87) 89 Room Air 09/18/19 10:00 36.5 09/18/19 09:35 98 Room Air 09/18/19 09:21 59 09/18/19 09:10 36.6 56 20 102/67 (83) 98 Room Air 09/18/19 09:00 62 118/72 (87) Room Air 09/18/19 08:07 55 21 103/73 (83) 97 Room Air 09/18/19 06:10 Room Air 09/18/19 06:10 36.6 67 18 122/66 (84) 96 I & O 09/19/19 07:00 Intake Total 2840 ml Output Total 2000 ml Balance 840 ml Height & Weight Height: 5'10.00" Weight: 250lbs. 0.0oz. 113.396542hs; 43.55 BMI Method:Stated General Appearance: No Apparent Distress, Obese HEENT: PERRL/EOMI, Pharynx Normal Neck: Normal Inspection, Supple Respiratory: Lungs Clear, Normal Breath Sounds, No Respiratory Distress Cardiovascular: Regular Rate, Rhythm, No Edema, No Murmur Capillary Refill: Less Than 3 Seconds Extremity: Normal Inspection, Non Tender, No Pedal Edema Neurologic/Psychiatric: Alert, Oriented x3, No Motor/Sensory Deficits, Normal Mood/Affect Skin: Normal Color, Warm/Dry Lymphatic: No Adenopathy Results Lab Laboratory Tests 09/18/19 06:21 09/19/19 03:08 Assessment/Plan Assessment/Plan NSTEMI s/p cath -Cardiology following CAD s/p CABG Depression and Anxiety LAUREN NAVARRO FRANCISCO DO Sep 19, 2019 06:08
[2019-09-19] MEDS ORDERED: KCL 10 MEQ TAB (MICRO K) PO SCH (08:00)
[2019-09-19] MEDS ORDERED: OMEGA 3 (FISH OIL) 1000 MG CAP PO SCH (08:00)
[2019-09-19] MEDS: PREGABALIN 100 MG (LYRICA) CAPSULE PO SCH ×2 (08:35→12:56)
[2019-09-19] MEDS: ALPRAZolam 0.5 MG (XANAX) TAB PO PRN (08:35)
[2019-09-19] MEDS ORDERED: ISOSORBIDE MONONITRATE 30 MG (IMDUR) TAB PO SCH (09:00)
[2019-09-19] MEDS ORDERED: KCL 20 MEQ TAB (K-DUR) PO SCH (09:00)
[2019-09-19] MEDS ORDERED: EPA PO SCH (09:00)
[2019-09-19] MEDS ORDERED: OMEGA PO SCH (09:00)
[2019-09-19] MEDS ORDERED: ASPIRIN E.C. 81 MG (ECOTRIN) TAB PO SCH (09:00)
[2019-09-19] MEDS ORDERED: NON-FORMULARY MEDICATION 1 EA EA (Ramipril 10 MG) PO SCH (09:00)
[2019-09-19] MEDS ORDERED: DHA PO SCH (09:00)
[2019-09-19] MEDS ORDERED: amLODIPine 10 MG (NORVASC) TAB PO SCH (09:00)
[2019-09-19] MEDS ORDERED: FUROSEMIDE 40 MG (LASIX) TAB PO SCH (09:00)
[2019-09-19] MEDS ORDERED: RAMIPRIL 5 MG (ALTACE) CAP PO SCH (09:00)
[2019-09-19] MEDS ORDERED: CLOPIDOGREL 75 MG (PLAVIX) TABLET PO SCH (09:00)
[2019-09-19] MEDS ORDERED: PANTOPRAZOLE 40 MG (PROTONIX) TAB PO SCH (09:00)
[2019-09-19] MEDS ORDERED: [UNRECOGNIZED DRUG - OTHER] PO SCH (09:00)
[2019-09-19] MEDS ORDERED: FISH OIL PO SCH (09:00)
--- NOTE | 2019-09-19 12:00 | Progress Note - Hospitalist ---
Subjective HPI/CC On Admission Date Seen by Provider: Sep 19, 2019 Time Seen by Provider: 09:15 Jhonny Kitchen is a 61-year-old male with past medical history of hypertension, hyperlipidemia, coronary artery disease status post CABG, GERD, anxiety, depression, obstructive sleep apnea, who presented with chest pain. He had a non-ST elevation [place] 6 weeks ago and underwent a left heart catheterization and had a stent placed. He reports that he has been on aspirin and Plavix since that time. He says he has been having intermittent chest pain. He says it is worse activity. He says that it radiates to his arm and neck. He denies any associated nausea or vomiting. He denies any diaphoresis. He has had associated shortness of breath with minimal exertion. His chest pain is resolved at the time of my exam. Subjective/Events-last exam he is not having anymore chest pain. He had some issues with bleeding from his catheter site overnight, but this is now resolved. He denies any lightheadedness or dizziness. He denies any shortness of breath. He says his back is hurting and he wants to sit up on that the bed. Objective Exam Vital Signs Vital Signs Date Time Temp Pulse Resp B/P (MAP) Pulse Ox O2 Delivery O2 Flow Rate FiO2 09/19/19 11:52 Room Air 09/19/19 11:00 78 28 128/73 (91) 97 09/19/19 08:00 37.6 Capillary Refill : Less Than 3 Seconds General Appearance: No Apparent Distress, Obese Respiratory: Lungs Clear, Normal Breath Sounds, No Respiratory Distress Cardiovascular: Regular Rate, Rhythm, No Edema, No Murmur Gastrointestinal: Normal Bowel Sounds, Non Tender, Soft Extremity: Normal Inspection, Non Tender, No Pedal Edema Neurologic/Psychiatric: Alert, Oriented x3, No Motor/Sensory Deficits, Normal Mood/Affect Skin: Normal Color, Warm/Dry Results/Procedures Lab Laboratory Tests 09/19/19 03:08 Patient resulted labs reviewed. Imaging: Reviewed Imaging Report Assessment/Plan Assessment and Plan Assess & Plan/Chief Complaint NSTEMI CAD s/p CABG Hypertension Hyperlipidemia Cardiology consulted, appreciate assistance left heart catheterization revealed severe stenosis at the vein graft to circumflex, balloon angioplasty performed continue aspirin and Plavix Resume ramipril and fenofibrate continue metoprolol Continue Imdur Receives Repatha as an outpatient due to statin intolerance GERD Anxiety Depression Obstructive sleep apnea Continue home meds CPAP at night DVT prophylaxis: Lovenox Diagnosis/Problems Diagnosis/Problems (1) Non-ST elevation [place] (NSTEMI) Status: Acute (2) CAD (coronary artery disease) Status: Acute Qualifiers: Coronary Disease-Associated Artery/Lesion type: bypass graft [place] vs. transplanted heart: [place] heart Associated angina: with stable angina Qualified Codes: I25.708 - Atherosclerosis of coronary artery bypass graft(s), unspecified, with other forms of angina pectoris (3) Hypertension Status: Chronic Qualifiers: Hypertension type: essential hypertension Qualified Codes: I10 - Essential (primary) hypertension (4) HLD (hyperlipidemia) Status: Chronic (5) GERD (gastroesophageal reflux disease) Status: Chronic (6) Anxiety and depression Status: Chronic (7) LAUREN (obstructive sleep apnea) Status: Chronic (8) Morbid obesity Status: Chronic Clinical Quality Measures AMI/AHF: ASA po Prior to arrival: No DVT/VTE Risk/Contraindication: Risk Factor Score Per Nursin RFS Level Per Nursing on Admit: 3=High YONIS PANDYA MD Sep 19, 2019 12:00
--- NOTE | 2019-09-19 15:15 | Cardiology Progress Note ---
Cardiology SOAP Progress Note Subjective: No further chest pain. Objective: I&O/Vital Signs 09/19/19 09/19/19 09/19/19 09/19/19 03:50 03:51 04:00 05:00 Temp 37.2 Pulse 87 86 Resp 17 22 B/P (MAP) 103/73 (83) 115/73 (87) Pulse Ox 94 95 O2 Delivery Room Air Room Air Room Air 09/19/19 09/19/19 09/19/19 09/19/19 06:00 07:00 07:00 08:00 Pulse 82 90 90 80 Resp 25 24 20 B/P (MAP) 125/71 (89) 135/78 (97) 127/74 (91) Pulse Ox 95 96 96 O2 Delivery Room Air Room Air Room Air 09/19/19 09/19/19 09/19/19 09/19/19 08:00 08:16 09:00 10:00 Temp 37.6 Pulse 77 80 Resp 16 18 B/P (MAP) 120/77 (91) 95/61 (72) Pulse Ox 97 96 O2 Delivery Room Air Room Air Room Air 09/19/19 09/19/19 09/19/19 09/19/19 11:00 11:52 12:00 13:00 Temp 36.4 Pulse 78 73 Resp 28 B/P (MAP) 128/73 (91) Pulse Ox 97 O2 Delivery Room Air Room Air 09/19/19 00:00 Intake Total 1420 ml Output Total 1150 ml Balance 270 ml Weight (Pounds): 250 Weight (Ounces): 0.0 Weight (Calculated Kilograms): 113.393189 Side: right Groin site without hematoma: No Bruising: mild bruising Constitutional: AAO x 3, PERRL, well-developed, well-nourished Respiratory: chest is bilaterally symmetric, lungs clear to auscultation Cardiovascular: regular rate-rhythm, S1 and S2; No diastolic murmur, No systolic murmur Gastrointestional: soft, audible bowel sounds Extremities: normal range of motion, non-tender, normal inspection Neurologic/Psychiatric: no motor/sensory deficits, alert, normal mood/affect, oriented x 3 Skin: normal color Results/Procedures: Labs Laboratory Tests 09/19/19 03:08: White Blood Count 6.2, Red Blood Count 3.16L, Hemoglobin 9.3L, Hematocrit 28L, Mean Corpuscular Volume 88, Mean Corpuscular Hemoglobin 29, Mean Corpuscular Hemoglobin Concent 34, Red Cell Distribution Width 14.7H, Platelet Count 274, Mean Platelet Volume 9.2, Neutrophils (%) (Auto) 68, Lymphocytes (%) (Auto) 18, Monocytes (%) (Auto) 12, Eosinophils (%) (Auto) 2, Basophils (%) (Auto) 0, Neutrophils # (Auto) 4.2, Lymphocytes # (Auto) 1.1, Monocytes # (Auto) 0.7, Eosinophils # (Auto) 0.1, Basophils # (Auto) 0.0, Sodium Level 135, Potassium Level 3.7, Chloride Level 105, Carbon Dioxide Level 20L, Anion Gap 10, Blood Urea Nitrogen 9, Creatinine 0.80, Estimat Glomerular Filtration Rate > 60, BUN/Creatinine Ratio 11, Glucose Level 95, Calcium Level 8.4L, Corrected Calcium 8.8, Phosphorus Level 3.2, Magnesium Level 1.7, Total Bilirubin 0.5, Aspartate Amino Transf (AST/SGOT) 91H, Alanine Aminotransferase (ALT/SGPT) 54, Alkaline Phosphatase 43, Troponin I 2.844*H, Total Protein 6.5, Albumin 3.5, Triglycerides Level 182H, Cholesterol Level 96, LDL Cholesterol Direct 51, VLDL Cholesterol 36, HDL Cholesterol 25L Microbiology 09/18/19 MRSA Screen - Final, Complete MRSA not isolated A/P: Assessment/Dx: Non-ST elevation myocardial infarction Coronary artery disease Hypertension Hyperlipidemia Plan: Non-ST elevation myocardial infarction, accelerating angina, elevated troponin, PTCA done to saphenous vein graft yesterday by Dr. Baxter. Mild right groin hematoma. COVID negative Coronary artery disease with history of CABG x6 with vein graft to OM 1, diagonal one, then graft to RPDA, RP LV, POWELL to LAD, vein graft to radial OM 2. Most recent cardiac catheterization done May 02, 2015 revealed severe stenosis at the mid left main with total occlusion of the circumflex artery. Vein graft to first obtuse marginal and diagonal branch are occluded. Patent POWELL to LAD, patent vein graft to second obtuse marginal. Totally occluded RCA with patent vein graft to the right posterior descending artery and posterior lateral branch was small vessel disease distally. Borderline stress test in July 2017 with diaphragmatic attenuation and mild decrease uptake at the mid to apical anterolateral and inferolateral wall with mild reversibility, SSS 6, SDS 2. Planning for [facility] this morning. Cardiac catheterization done in July 2019 showed severe [place] coronary artery disease, patent POWELL to LAD, patent vein graft to OM 2, occluded vein graft to diagonal, severe stenosis of the vein gr aft to the right PDA/right PLV, status post stenting using 3 x 30 Wendy drug- eluting stent expanded to 3.1, patient was feeling well after the cardiac catheterization in July, started to have chest pain for the past 2 weeks and increasing dyspnea on exertion, had elevated troponin, I'll proceed with cardiac catheterization Hypertension, restart home medication and monitor Hyperlipidemia, intolerance to statins causing severe myalgias, elevated LFTs. More specifically patient has tried Lipitor 20 mg, was increased to 40 mg in 2010, however stopped secondary to elevated LFTs in April 2015. He has also been intolerant to Zocor and Crestor causing myalgias. Niaspan was stopped 2013 secondary GI upset. Liver enzymes back normal after discontinuation of statin therapy. Started on Repatha and tolerating it well, I will evaluate lipid profile Sick sinus syndrome, bradycardia, loss of energy. Improved after decreasing beta lauro, continue to monitor. Restless leg syndrome, lower extremity pain, discomfort. Follows with PCP Anxiety, reporting improvement with Xanax. Continue to monitor. Carotid artery stenosis, status post left carotid endarterectomy done by Dr. Sherwin Lou in November 2017. Continue to monitor Mild pulmonary hypertension, last echocardiogram was done in July 2017 showing normal LV size with EF 55-65 percent, grade 2 diastolic dysfunction, left atrium 4.7 cm, mild MR, PA 35 mmHg. Continue to monitor. History of GI bleed, continue to monitor Obesity, BMI is 36. We discussed weight loss and exercise. Obstructive sleep apnea, using C Pap machine. Chronic back pain, managed by primary care physician Thank you for your consultation. Please call me if you have any questions. Edward Mcarthur MD, FACP, FACC, FSCAI, FHRS, CCDS Interventional Cardiology Cardiac Electrophysiology Vascular Medicine and Endovascular Interventions Clinical Quality Measures AMI/AHF: ASA po Prior to arrival: Tomas Smith MD Sep 19, 2019 15:15
== END 2019-09-19 14:23 | disposition home or self-care (01) | DRG 251 ==
LOC: EDUNIT# 05:55 → ER 05:57 → ICU 07:45
PROVIDERS: ADMIT Internal Medicine; ATTEND Internal Medicine
PROC: 02703ZZ Dilation of Coronary Artery, One Artery, Percutaneous Approach (ICD-10-PCS; principal; 2019-09-18)
PROC: 4A023N7 Measurement of Cardiac Sampling and Pressure, Left Heart, Percutaneous Approach (ICD-10-PCS; 2019-09-18)
PROC: B2111ZZ Fluoroscopy of Multiple Coronary Arteries using Low Osmolar Contrast (ICD-10-PCS; 2019-09-18)
DX: I21.4 Non-ST elevation (NSTEMI) myocardial infarction (principal); Z68.41 Body mass index [BMI] 40.0-44.9, adult; I25.110 Atherosclerotic heart disease of native coronary artery with unstable angina pectoris; I25.2 Old myocardial infarction; I10 Essential (primary) hypertension; E78.00 Pure hypercholesterolemia, unspecified; I27.20 Pulmonary hypertension, unspecified; E66.01 Morbid (severe) obesity due to excess calories; G47.33 Obstructive sleep apnea (adult) (pediatric); K21.9 Gastro-esophageal reflux disease without esophagitis; I44.0 Atrioventricular block, first degree; I34.0 Nonrheumatic mitral (valve) insufficiency; G25.81 Restless legs syndrome; I49.5 Sick sinus syndrome; M19.91 Primary osteoarthritis, unspecified site; M54.9 Dorsalgia, unspecified; F32.9 Major depressive disorder, single episode, unspecified; F41.9 Anxiety disorder, unspecified; Z20.828 Contact with and (suspected) exposure to other viral communicable diseases; G89.29 Other chronic pain; Z95.1 Presence of aortocoronary bypass graft; Z95.5 Presence of coronary angioplasty implant and graft; Z79.82 Long term (current) use of aspirin; Z79.02 Long term (current) use of antithrombotics/antiplatelets; Z87.442 Personal history of urinary calculi
CPT/HCPCS: 36415; 71045; 80053; 80061; 83615; 83735; 83874; 83880; 84100; 84145; 84484; 85025; 85027; 85379; 85610; 85652; 85730; 86141; 87081; 87635; 93005; 93041; 93459